=== PATIENT | male | born 1975 | race Caucasian/White ===

== ENCOUNTER 2022-06-22 16:05 | Outpatient (CLI) | payer OTHER, SELFPAY ==
--- NOTE | ~2022-06-22 | XR_ITS ---
Clinical Indication: Cough PA and lateral views of the chest: Comparison: 09/10/2014 Findings: The lungs are clear, without evidence of focal consolidation or pleural effusion. Cardiome diastinal silhouette is within normal limits. Bones and soft tissues are unremarkable. Impression: Normal chest. Reviewed, dictated and finalized at [facility]. [facility] Impression: Normal chest.
== END 2022-06-22 16:06 | disposition home or self-care (01) ==
LOC: ANHIMG 16:12
PROVIDERS: PCP Physician Assistant; Visit Provider Physician Assistant
DX: R05.9 Cough, unspecified (principal)
CPT/HCPCS: 71046

== ENCOUNTER 2024-01-01 14:47 | Outpatient (CLI) | payer OTHER, SELFPAY ==
--- NOTE | ~2024-01-01 | XR_ITS ---
XR femur RT min 2V Ordering provider: Yee Chang, LUCI History: . Pain in right lower leg . Comparison: None. FINDINGS: BONES: No acute fracture or dislocation. JOINT SPACES: Normal. SOFT TISSUES: Normal. IMPRESSION: No acute osseous abnormality of the right femur. Reviewed, dictated and finalized at location A.
--- NOTE | ~2024-01-01 | XR_ITS ---
3 VIEWS LUMBAR SPINE Ordering provider: Yee Chang, PAVishnu History: . Radiculopathy, lumbar region . Comparison: None. FINDINGS: VERTEBRAL BODIES:Lumbarization of S1. No visible fracture or subluxation. DISK SPACES: Slight narrowing of the disc L3-L4. SOFT TISSUES: Normal. Bilateral sacroiliacs. IMPRESSION: No acute osseous abnormality lumbar spine. Reviewed, dictated and finalized at location A.
== END 2024-01-01 14:48 ==
PROVIDERS: PCP Physician Assistant; Visit Provider Physician Assistant
DX: M54.16 Radiculopathy, lumbar region (principal); M79.661 Pain in right lower leg
CPT/HCPCS: 72100; 73552

== ENCOUNTER 2024-09-22 09:13 | Emergency (ER) | payer OTHER, SELFPAY ==
[2024-09-22 09:20] VITALS: BP 151/94; PULSE 90; RESP 16; TEMP 36.4; O2SAT 90
[2024-09-22 09:30] VITALS: RESP 16; O2SAT 99
[2024-09-22] MEDS: DEXTROSE 50% 25 GM/50 ML SYRINGE (09:32)
--- NOTE | 2024-09-22 09:34 | PC.NURSE ---
verbal order by ED[facility] special needs child caregiver for D50% IV push
--- NOTE | 2024-09-22 09:46 | PC.NURSE ---
Pt is eating breakfast.
[2024-09-22 09:58] LABS: Glucose Point of Care 44 mg/dl (65-105)
[2024-09-22 09:58] LABS: Glucose Point of Care 67 mg/dl (65-105)
--- OUTSIDE RECORDS SUMMARY | 2024-09-22 10:13 | XMS_ITS | Data Portability ---
Author Organization KASHMIR ASHISHDaniela Anglin Address [address] [place] [address] Care Team Providers Care Vice President Process Name Role Phone ROS GARCIA Primary Care Provider Unavailab le Assessment No assessment recorded. Plan of Treatment Reminders Order Date Submit Date Provider Last Modified By Organization Details Last Modified Time Details Appointments ANY 15 2024 03:15P M MIRANDA Lino Not available Not available Not available Lab HbA1c (hemoglob in A1c), blood 2024 025 [email or web address] [facility], [address], [place], [address], 07/30/2024 16:57:12 CMP, serum or plasma 2024 025 [email or web address] [facility], [address], [place], [address], 07/30/2024 16:57:12 CBC w/ auto diff 2024 025 [email or web address] [facility], [address], [address], [place], [address], 07/30/2024 16:57:12 lipid panel, serum 2024 025 [email or web address] [facility], [address], [address], [place], [address], 07/30/2024 16:57:12 TSH + free T4, serum 2024 025 [email or web address] [facility], [address], [place], [address], 07/30/2024 16:57:12 PSA, total, serum or plasma 2023 024 [email or web address], [address], [place], [address], 06/10/2024 11:47:50 HbA1c (hemoglob in A1c), blood 2023 024 [email or web address], [address], [address], [place], [address], 06/10/2024 11:47:50 CMP, serum or plasma 2023 024 [email or web address], [address], [address], [place], [address], 06/10/2024 11:47:50 CBC w/ auto diff 2023 024 [email or web address], [address], [place], [address], 06/10/2024 11:47:50 lipid panel, serum 2023 024 [email or web address], [address], [address], [place], [address], 06/10/2024 11:47:50 TSH + free T4, serum 2023 024 [email or web address], [address], [address], [place], [address], 06/10/2024 11:47:50 HbA1c (hemoglob in A1c), blood 2023 024 [email or web address] [facility], [address], [address], [place], [address], 11/05/2023 07:36:26 CMP, serum or plasma 2023 024 [email or web address] [facility], [address], [place], [address], 11/05/2023 07:36:26 CBC w/ auto diff 2023 024 [facility], [address], [address], [place], [address], 11/05/2023 07:36:27 lipid panel, serum 2023 024 [facility], [address], [address], [place], [address], 11/05/2023 07:36:25 TSH + free T4, serum 2023 024 [facility], [address], [address], [place], [address], 11/05/2023 07:36:25 Referral None recorded. Procedures None recorded. Surgeries None recorded. Imaging MRI, lumbar spine, w/o contrast 2024 025 [facility], [address] Joey [address]put, [address], [place], [address], 08/15/2024 12:47:37 XR, lumbar spine 2023 024 [facility], [address], [address], [place], [address], 01/10/2024 15:41:06 XR, femur, 2 or more view [address] [facility], [address], [address], [place], [address], 01/02/2024 07:33:30 Medication Orders carvedilo l 6.25 mg tablet 2023 024 [id number], [address] [place], [address], 10/09/2023 17:33:52 Mounjaro 5 mg/0.5 mL subcutane ous pen injector 2023 024 [id number], [address] [place], [address], 07/30/2024 16:32:43 Patient TargetsNo targets recorded. Patient Instructions Encounter Date Encounter Id Patient Instructions Last Modified By Organization Details Last Modified Time 10/09/2023 [id number] A healthy lifestyle: care instructions [email or web address] Not available 10/29/2023 00:27:55 Reason for Referral None Reported. Results Created Date Observation Date Name Description Value Unit Range Abnormal Flag Note LastModifiedBy Organization Detail LastModifiedTime 11/04/1911/05/2023 TSH+F REE T4 TSH 3.790 uIU/m L 0.450- 4.500 Not Available [facility] ([facility]) [address] [place], [address], 11/05/2023 07:36:25 11/04/1911/05/2023 TSH+F REE T4 T4,free(dire ct) 1.63 NG/dL 0.82-1 .77 Not Available [facility] ([facility]) [address] [place], [address], 11/05/2023 07:36:25 11/04/1911/05/2023 LIPID PANEL cholesterol, total 160 mg/dL 100-19 9 Not Available [facility] ([facility]) [address] [place], [address], 11/05/2023 07:36:25 11/04/1911/05/2023 LIPID PANEL triglyceride s 115 mg/dL 0-149 Not Available [facility]) [address] [place], [address], 11/05/2023 07:36:25 11/04/19 24 11/05/2023 LIPID PANEL HDL cholesterol 44 mg/dL >39 Not Available [facility]) [address] [facility], [place], [address], 11/05/2023 07:36:25 11/04/19 24 11/05/2023 LIPID PANEL VLDL cholesterol cierra 21 mg/dL 5-40 Not Available [facility]) [address] [facility], [place], [address], 11/05/2023 07:36:25 11/04/19 24 11/05/2023 LIPID PANEL LDL chol calc ([facility]) 95 mg/dL 0-99 Not Available [facility] [address] [facility], [place], [address], 11/05/2023 07:36:25 11/04/19 24 11/05/2023 COMP. METAB OLIC PANEL (14) glucose 82 mg/dL 70-99 Not Available [facility] ([facility]) [address] [place], [address], 11/05/2023 07:36:26 11/04/19 24 11/05/2023 COMP. METAB OLIC PANEL (14) BUN 15 mg/dL 6-24 Not Available [facility] ([facility]) [address] [facility], [place], [address], 11/05/2023 07:36:26 11/04/19 24 11/05/2023 COMP. METAB OLIC PANEL (14) creatinine 0.96 mg/dL 0.76-1 .27 Not Available [facility] ([facility]) [address] [place], [address], 11/05/2023 07:36:26 11/04/19 24 11/05/2023 COMP. METAB OLIC PANEL (14) eGFR 96 mL/mi n/1.7 3 >59 Not Available [facility] ([facility]) [address] [place], [address], 11/05/2023 07:36:26 11/04/19 24 11/05/2023 COMP. METAB OLIC PANEL (14) BUN/creatini ne ratio 16 9-20 Not Available [facility]) [address] [facility] [place], [address], 11/05/2023 07:36:26 11/04/19 24 11/05/2023 COMP. METAB OLIC PANEL (14) sodium 142 mmol/ L 134-14 4 Not Available [facility] ([facility]) [address] [facility] [place], [address], 11/05/2023 07:36:26 11/04/19 24 11/05/2023 COMP. METAB OLIC PANEL (14) potassium 4.3 mmol/ L 3.5-5. 2 Not Available [facility] ([facility]) [address] [facility] [place], [address], 11/05/2023 07:36:26 11/04/19 24 11/05/2023 COMP. METAB OLIC PANEL (14) chloride 105 mmol/ L 96-106 Not Available [facility] ([facility]) [address] [facility] [place], [address], 11/05/2023 07:36:26 11/04/19 24 11/05/2023 COMP. METAB OLIC PANEL (14) carbon dioxide, total 21 mmol/ L 20-29 Not Available [facility] ([facility]) [address] [facility] [place], [address], 11/05/2023 07:36:26 11/04/19 24 11/05/2023 COMP. METAB OLIC PANEL (14) calcium 9.6 mg/dL 8.7-10 .2 Not Available [facility] ([facility]) [address] [facility] [place], [address], 11/05/2023 07:36:26 11/04/19 24 11/05/2023 COMP. METAB OLIC PANEL (14) protein, total 6.9 g/dL 6.0-8. 5 Not Available [facility] ([facility]) [address] [facility], [place], [address], 11/05/2023 07:36:26 11/04/19 24 11/05/2023 COMP. METAB OLIC PANEL (14) albumin 4.6 g/dL 4.1-5. 1 Not Available [facility] ([facility]) [address] [place], [place], [address], 11/05/2023 07:36:26 11/04/19 24 11/05/2023 COMP. METAB OLIC PANEL (14) globulin, total 2.3 g/dL 1.5-4. 5 Not Available [facility] ([facility]) [address], [place], [address], 11/05/2023 07:36:26 11/04/19 24 11/05/2023 COMP. METAB OLIC PANEL (14) A/G ratio 2.0 1.2-2. 2 Not Available [facility] ([facility]) [address] [facility], [place], [address], 11/05/2023 07:36:26 11/04/19 24 11/05/2023 COMP. METAB OLIC PANEL (14) bilirubin, total 0.5 mg/dL 0.0-1. 2 Not Available [facility] ([facility]) [address] [facility], [place], [address], 11/05/2023 07:36:26 11/04/19 24 11/05/2023 COMP. METAB OLIC PANEL (14) alkaline phosphatase 89 IU/L 44-121 Not Available [facility] [address] [facility], [place], [address], 11/05/2023 07:36:26 11/04/19 24 11/05/2023 COMP. METAB OLIC PANEL (14) AST (SGOT) 18 IU/L 0-40 Not Available [facility] ([facility]) [address] [facility], [place], [address], 11/05/2023 07:36:26 11/04/19 24 11/05/2023 COMP. METAB OLIC PANEL (14) ALT (SGPT) 18 IU/L 0-44 Not Available [facility] ([facility]) [address] [facility], [place], [address], 11/05/2023 07:36:26 11/04/19 24 11/05/2023 HEMOG LOBIN A1C hemoglobin A1C 7.0 % 4.8-5. 6 above high normal Predi abete s: 5.7 - 6.4 Diabe anat: >6.4 Glyce evaristo contr ol for adult s with diabe anat: <7.0 Not Available [facility] ([facility]) [address] [facility], [place], [address], 11/05/2023 07:36:26 11/04/19 24 11/05/2023 CBC WITH DIFFE RENTI AL/PL ATELE T WBC 6.3 x10e3 /uL 3.4-10 .8 Not Available [facility] ([facility]) [address] [facility], [place], [address], 11/05/2023 07:36:27 11/04/19 24 11/05/2023 CBC WITH DIFFE RENTI AL/PL ATELE T RBC 5.88 x10e6 /uL 4.14-5 .80 above high normal Not Available [facility] ([facility]) [address] [place], [address], 11/05/2023 07:36:27 11/04/19 24 11/05/2023 CBC WITH DIFFE RENTI AL/PL ATELE T hemoglobin 17.4 g/dL 13.0-1 7.7 Not Available [facility] ([facility]) [address] [place], [address], 11/05/2023 07:36:27 11/04/19 24 11/05/2023 CBC WITH DIFFE RENTI AL/PL ATELE T hematocrit 51.5 % 37.5-5 1.0 above high normal Not Available [facility] ([facility]) [address] [facility], [place], [address], 11/05/2023 07:36:27 11/04/19 24 11/05/2023 CBC WITH DIFFE RENTI AL/PL ATELE T MCV 88 fL 79-97 Not Available [facility] ([facility]) [address] [facility], [place], [address], 11/05/2023 07:36:27 11/04/19 24 11/05/2023 CBC WITH DIFFE RENTI AL/PL ATELE T MCH 29.6 pg 26.6-3 3.0 Not Available [facility] ([facility]) [address] [facility], [place], [address], 11/05/2023 07:36:27 11/04/19 24 11/05/2023 CBC WITH DIFFE RENTI AL/PL ATELE T MCHC 33.8 g/dL 31.5-3 5.7 Not Available [facility] ([facility]) [address] [facility], [place], [address], 11/05/2023 07:36:27 11/04/19 24 11/05/2023 CBC WITH DIFFE RENTI AL/PL ATELE T RDW 13.1 % 11.6-1 5.4 Not Available [facility] ([facility]) [address] [place], [address], 11/05/2023 07:36:27 11/04/19 24 11/05/2023 CBC WITH DIFFE RENTI AL/PL ATELE T platelets 263 x10e3 /uL 150-45 0 Not Available [facility] ([facility]) [address] [facility], [place], [address], 11/05/2023 07:36:27 11/04/19 24 11/05/2023 CBC WITH DIFFE RENTI AL/PL ATELE T neutrophils 58 % notest ab. Not Available [facility] ([facility]) [address] [facility], [place], [address], 11/05/2023 07:36:27 11/04/19 24 11/05/2023 CBC WITH DIFFE RENTI AL/PL ATELE T lymphs 30 % notest ab. Not Available [facility] ([facility]) [address] [facility], [place], [address], 11/05/2023 07:36:27 11/04/19 24 11/05/2023 CBC WITH DIFFE RENTI AL/PL ATELE T monocytes 9 % notest ab. Not Available [facility] ([facility]) [address] [facility], [place], [address], 11/05/2023 07:36:27 11/04/19 24 11/05/2023 CBC WITH DIFFE RENTI AL/PL ATELE T eos 3 % notest ab. Not Available [facility] ([facility]) [address] [place], [address], 11/05/2023 07:36:27 11/04/19 24 11/05/2023 CBC WITH DIFFE RENTI AL/PL ATELE T basos 0 % notest ab. Not Available [facility] ([facility]) [address] [facility], [place], [address], 11/05/2023 07:36:27 11/04/19 24 11/05/2023 CBC WITH DIFFE RENTI AL/PL ATELE T neutrophils (absolute) 3.7 x10e3 /uL 1.4-7. 0 Not Available [facility] ([facility]) [address] [facility], [place], [address], 11/05/2023 07:36:27 11/04/19 24 11/05/2023 CBC WITH DIFFE RENTI AL/PL ATELE T lymphs (absolute) 1.9 x10e3 /uL 0.7-3. 1 Not Available [facility] ([facility]) [address] [facility], [place], [address], 11/05/2023 07:36:27 11/04/19 24 11/05/2023 CBC WITH DIFFE RENTI AL/PL ATELE T monocytes(ab solute) 0.6 x10e3 /uL 0.1-0. 9 Not Available [facility] ([facility]) [address] [facility], [place], [address], 11/05/2023 07:36:27 11/04/19 24 11/05/2023 CBC WITH DIFFE RENTI AL/PL ATELE T eos (absolute) 0.2 x10e3 /uL 0.0-0. 4 Not Available [facility] ([facility]) [address] [facility], [place], [address], 11/05/2023 07:36:27 11/04/19 24 11/05/2023 CBC WITH DIFFE RENTI AL/PL ATELE T baso (absolute) 0.0 x10e3 /uL 0.0-0. 2 Not Available [facility] ([facility]) [address] [facility], [place], [address], 11/05/2023 07:36:27 11/04/19 24 11/05/2023 CBC WITH DIFFE RENTI AL/PL ATELE T immature granulocytes 0 % notest ab. Not Available [facility] ([facility]) [address] [facility], [place], [address], 11/05/2023 07:36:27 11/04/19 24 11/05/2023 CBC WITH DIFFE RENTI AL/PL ATELE T immature grans (abs) 0.0 x10e3 /uL 0.0-0. 1 Not Available [facility] ([facility]) [address] [facility], [place], [address], 11/05/2023 07:36:27 05/04/20 24 05/05/2024 TSH+F REE T4 TSH 2.970 uIU/m L 0.450- 4.500 Not Available [facility] ([facility]) [address] [place], [address], 05/05/2024 10:10:12 05/04/20 24 05/05/2024 TSH+F REE T4 T4,free(dire ct) 1.81 NG/dL 0.82-1 .77 above high normal Not Available [facility] ([facility]) [address] [place], [address], 05/05/2024 10:10:12 05/04/20 24 05/05/2024 LIPID PANEL WITH LDL/H DL RATIO cholesterol, total 90 mg/dL 100-19 9 below low normal Not Available [facility] ([facility]) [address] [place], [address], 05/05/2024 10:10:13 05/04/20 24 05/05/2024 LIPID PANEL WITH LDL/H DL RATIO triglyceride s 66 mg/dL 0-149 Not Available [facility] ([facility]) [address] [place], [address], 05/05/2024 10:10:13 05/04/20 24 05/05/2024 LIPID PANEL WITH LDL/H DL RATIO HDL cholesterol 31 mg/dL >39 below low normal Not Available [facility] ([facility]) [address] [place], [address], 05/05/2024 10:10:13 05/04/20 24 05/05/2024 LIPID PANEL WITH LDL/H DL RATIO VLDL cholesterol cierra 15 mg/dL 5-40 Not Available [facility] ([facility]) [address] [place], [address], 05/05/2024 10:10:13 05/04/20 24 05/05/2024 LIPID PANEL WITH LDL/H DL RATIO LDL chol calc ([facility]) 44 mg/dL 0-99 Not Available [facility] [address] [facility], [place], [address], 05/05/2024 10:10:13 05/04/20 24 05/05/2024 LIPID PANEL WITH LDL/H DL RATIO LDL/HDL ratio 1.4 ratio 0.0-3. 6 LDL/H DL Ratio Men Women 1/2 Avg.R isk 1.0 1.5 Avg.R isk 3.6 3.2 2X Avg.R isk 6.2 5.0 3X Avg.R isk 8.0 6.1 Not Available [facility] ([facility]) [address] [facility], [place], [address], 05/05/2024 10:10:13 05/04/20 24 05/05/2024 COMP. METAB OLIC PANEL (14) glucose 93 mg/dL 70-99 Not Available [facility] ([facility]) [address] [place], [address], 05/05/2024 10:10:14 05/04/20 24 05/05/2024 COMP. METAB OLIC PANEL (14) BUN 24 mg/dL 6-24 Not Available [facility] ([facility]) [address] [place], [address], 05/05/2024 10:10:14 05/04/20 24 05/05/2024 COMP. METAB OLIC PANEL (14) creatinine 0.90 mg/dL 0.76-1 .27 Not Available [facility] ([facility]) [address] [place], [address], 05/05/2024 10:10:14 05/04/20 24 05/05/2024 COMP. METAB OLIC PANEL (14) eGFR 104 mL/mi n/1.7 3 >59 Not Available [facility] ([facility]) [address] [place], [address], 05/05/2024 10:10:14 05/04/20 24 05/05/2024 COMP. METAB OLIC PANEL (14) BUN/creatini ne ratio 27 9-20 above high normal Not Available [facility] ([facility]) [address] [place], [address], 05/05/2024 10:10:14 05/04/20 24 05/05/2024 COMP. METAB OLIC PANEL (14) sodium 140 mmol/ L 134-14 4 Not Available [facility] ([facility]) [address] [place], [address], 05/05/2024 10:10:14 05/04/20 24 05/05/2024 COMP. METAB OLIC PANEL (14) potassium 4.2 mmol/ L 3.5-5. 2 Not Available [facility] ([facility]) [address] [place], [address], 05/05/2024 10:10:14 05/04/20 24 05/05/2024 COMP. METAB OLIC PANEL (14) chloride 104 mmol/ L 96-106 Not Available [facility] ([facility]) [address] [place], [address], 05/05/2024 10:10:14 05/04/20 24 05/05/2024 COMP. METAB OLIC PANEL (14) carbon dioxide, total 20 mmol/ L 20-29 Not Available [facility] ([facility]) [address] [place], [address], 05/05/2024 10:10:14 05/04/20 24 05/05/2024 COMP. METAB OLIC PANEL (14) calcium 10.0 mg/dL 8.7-10 .2 Not Available [facility] ([facility]) [address] [place], [address], 05/05/2024 10:10:14 05/04/20 24 05/05/2024 COMP. METAB OLIC PANEL (14) protein, total 6.7 g/dL 6.0-8. 5 Not Available [facility] [address] [facility] [place], [address], 05/05/2024 10:10:14 05/04/20 24 05/05/2024 COMP. METAB OLIC PANEL (14) albumin 4.4 g/dL 4.1-5. 1 Not Available [facility] ([facility]) [address] [place], [place], [address], 05/05/2024 10:10:14 05/04/20 24 05/05/2024 COMP. METAB OLIC PANEL (14) globulin, total 2.3 g/dL 1.5-4. 5 Not Available [facility] ([facility]) [address] [place], [place], [address], 05/05/2024 10:10:14 05/04/20 24 05/05/2024 COMP. METAB OLIC PANEL (14) bilirubin, total 0.7 mg/dL 0.0-1. 2 Not Available [facility] [address] [facility] [place], [address], 05/05/2024 10:10:14 05/04/20 24 05/05/2024 COMP. METAB OLIC PANEL (14) alkaline phosphatase 104 IU/L 44-121 Not Available [facility]) [address] [facility], [place], [address], 05/05/2024 10:10:14 05/04/20 24 05/05/2024 COMP. METAB OLIC PANEL (14) AST (SGOT) 14 IU/L 0-40 Not Available [facility] ([facility]) [address] [facility], [place], [address], 05/05/2024 10:10:14 05/04/20 24 05/05/2024 COMP. METAB OLIC PANEL (14) ALT (SGPT) 16 IU/L 0-44 Not Available [facility] ([facility]) [address] [facility], [place], [address], 05/05/2024 10:10:14 05/04/20 24 05/05/2024 HEMOG LOBIN A1C hemoglobin A1C 7.2 % 4.8-5. 6 above high normal Predi abete s: 5.7 - 6.4 Diabe anat: >6.4 Glyce evaristo contr ol for adult s with diabe anat: <7.0 Not Available [facility] ([facility]) [address] [facility], [place], [address], 05/05/2024 10:10:15 05/04/20 24 05/05/2024 CBC WITH DIFFE RENTI AL/PL ATELE T WBC 5.6 x10e3 /uL 3.4-10 .8 Not Available [facility] ([facility]) [address] [facility], [place], [address], 05/05/2024 10:10:17 05/04/20 24 05/05/2024 CBC WITH DIFFE RENTI AL/PL ATELE T RBC 5.79 x10e6 /uL 4.14-5 .80 Not Available [facility] ([facility]) [address] [facility], [place], [address], 05/05/2024 10:10:17 05/04/20 24 05/05/2024 CBC WITH DIFFE RENTI AL/PL ATELE T hemoglobin 17.6 g/dL 13.0-1 7.7 Not Available [facility] ([facility]) [address] [facility], [place], [address], 05/05/2024 10:10:17 05/04/20 24 05/05/2024 CBC WITH DIFFE RENTI AL/PL ATELE T hematocrit 52.4 % 37.5-5 1.0 above high normal Not Available [facility] ([facility]) [address] [facility], [place], [address], 05/05/2024 10:10:17 05/04/20 24 05/05/2024 CBC WITH DIFFE RENTI AL/PL ATELE T MCV 91 fL 79-97 Not Available [facility] ([facility]) [address] [facility], [place], [address], 05/05/2024 10:10:17 05/04/20 24 05/05/2024 CBC WITH DIFFE RENTI AL/PL ATELE T MCH 30.4 pg 26.6-3 3.0 Not Available [facility] ([facility]) [address] [facility], [place], [address], 05/05/2024 10:10:17 05/04/20 24 05/05/2024 CBC WITH DIFFE RENTI AL/PL ATELE T MCHC 33.6 g/dL 31.5-3 5.7 Not Available [facility] ([facility]) [address] [facility], [place], [address], 05/05/2024 10:10:17 05/04/20 24 05/05/2024 CBC WITH DIFFE RENTI AL/PL ATELE T RDW 12.7 % 11.6-1 5.4 Not Available [facility] ([facility]) [address] [facility], [place], [address], 05/05/2024 10:10:17 05/04/20 24 05/05/2024 CBC WITH DIFFE RENTI AL/PL ATELE T platelets 260 x10e3 /uL 150-45 0 Not Available [facility] ([facility]) [address] [facility], [place], [address], 05/05/2024 10:10:17 05/04/20 24 05/05/2024 CBC WITH DIFFE RENTI AL/PL ATELE T neutrophils 59 % notest ab. Not Available [facility] ([facility]) [address] [facility], [place], [address], 05/05/2024 10:10:17 05/04/20 24 05/05/2024 CBC WITH DIFFE RENTI AL/PL ATELE T lymphs 26 % notest ab. Not Available [facility] ([facility]) [address] [facility], [place], [address], 05/05/2024 10:10:17 05/04/20 24 05/05/2024 CBC WITH DIFFE RENTI AL/PL ATELE T monocytes 12 % notest ab. Not Available [facility] ([facility]) [address] [facility], [place], [address], 05/05/2024 10:10:17 05/04/20 24 05/05/2024 CBC WITH DIFFE RENTI AL/PL ATELE T eos 3 % notest ab. Not Available [facility] ([facility]) [address] [facility], [place], [address], 05/05/2024 10:10:17 05/04/20 24 05/05/2024 CBC WITH DIFFE RENTI AL/PL ATELE T basos 0 % notest ab. Not Available [facility] ([facility]) [address] [facility], [place], [address], 05/05/2024 10:10:17 05/04/20 24 05/05/2024 CBC WITH DIFFE RENTI AL/PL ATELE T neutrophils (absolute) 3.3 x10e3 /uL 1.4-7. 0 Not Available [facility] ([facility]) [address] [facility], [place], [address], 05/05/2024 10:10:17 05/04/20 24 05/05/2024 CBC WITH DIFFE RENTI AL/PL ATELE T lymphs (absolute) 1.4 x10e3 /uL 0.7-3. 1 Not Available [facility] ([facility]) [address] [facility], [place], [address], 05/05/2024 10:10:17 05/04/20 24 05/05/2024 CBC WITH DIFFE RENTI AL/PL ATELE T monocytes(ab solute) 0.7 x10e3 /uL 0.1-0. 9 Not Available [facility] ([facility]) [address] [facility], [place], [address], 05/05/2024 10:10:17 05/04/20 24 05/05/2024 CBC WITH DIFFE RENTI AL/PL ATELE T eos (absolute) 0.2 x10e3 /uL 0.0-0. 4 Not Available [facility] ([facility]) [address] [place], [address], 05/05/2024 10:10:17 05/04/20 24 05/05/2024 CBC WITH DIFFE RENTI AL/PL ATELE T baso (absolute) 0.0 x10e3 /uL 0.0-0. 2 Not Available [facility] ([facility]) [address] [place], [address], 05/05/2024 10:10:17 05/04/20 24 05/05/2024 CBC WITH DIFFE RENTI AL/PL ATELE T immature granulocytes 0 % notest ab. Not Available [facility] ([facility]) [address] [place], [address], 05/05/2024 10:10:17 05/04/20 24 05/05/2024 CBC WITH DIFFE RENTI AL/PL ATELE T immature grans (abs) 0.0 x10e3 /uL 0.0-0. 1 Not Available [facility] ([facility]) [address] [place], [address], 05/05/2024 10:10:17 05/04/20 24 05/05/2024 PROST ATE-S PECIF IC AG prostate specific Ag 0.3 NG/mL 0.0-4. 0 Adarsh ECLIA metho dolog y. Accor ding to the Ameri can [employer]rolo g[employer] iatio n, Serum PSA shoul d decre ase and remai n at undet ectab le level s after radic al prost atect emilia. The AUA defin es bioch emica l recur rence as an initi al PSA value 0.2 ng/mL or great er follo wed by a subse quent confi rmato ry PSA value 0.2 ng/mL or great er. Value s obtai babs with diffe rent assay metho ds or kits canno t be used inter quispe eably . Resul ts canno t be inter prete d as absol tom evide nce of the prese nce or absen ce of nikia thomas se. Not Available [facility] ([facility]) [address] [facility], [place], [address], 05/05/2024 10:10:18 01/02/20 24 01/01/2024 XR, femur , 2 or more view No observ ation record ed. [facility] [address], [place], [address], 01/10/2024 15:42:32 Result Notes None recorded. Problems Name Problem SNOMED Code Status Onset Date Resolution Date Notes Provider Name and Address Organization Details Recorded Time Long-term drug therapy Active 2023 MIRANDA Lino Attn: Gregory gonsalez,[address] [place], [address], [facility] 4 00:27:21 Erectile dysfunction 607677438 Active 2023 MIRANDA Lino Attn: Gregory gonsalez,[address] [place], [address], [facility] 4 00:27:21 Hyperlipide lorraine 46549678 Active 2023 MIRANDA Lino Attn: Gregory gonsalez,[address] [place], [address], [facility] 4 00:27:23 Hypothyroid ism 02636001 Active 2023 MIRANDA Lino Attn: Gregory gonsalez,[address] [place], [address], [place] - [facility] 4 00:27:25 Coronary atheroscler osis 780571818 Active 2023 MIRANDA Lino Attn: Syedasusanne gonsalez,[address] [facility], [place], [address], [place] [facility] 4 00:27:28 Uncontrolle d type 2 diabetes mellitus 343082279 Active 2023 MIRANDA Lino Attn: Gregory wallace,[address] [facility], [place], [address], [place] [facility] 4 00:27:29 Body mass index 30+ - obesity 208643762 Active 2023 MIRANDA Lino Attn: Gregory wallace,[address] [facility], [place], [address], [place] [facility] 4 00:28:02 Obesity 226095408 Active 2023 MIRANDA Lino Attn: Gregory wallace,[address] [facility], [place], [address], [place] [facility] 4 00:28:03 Lumbar radiculopat hy 762917067 Active 2023 MIRANDA Lino Attn: Gregory wallace,[address] [facility], [place], [address], [place] [facility] 4 14:31:40 Pain of right lower leg 8859865499509 08 Active 2023 MIRANDA Lino Attn: Gregory gonsalez,[address] [facility], [place], [address], [place] [facility] 4 14:31:48 Problem Notes None recorded. Procedures Surgical History Date Name Laterality Status Provider Name and Address Organization Details Recorded Time placement of stent in cardiac conduit completed Radha Gan [place] - [facility] 10/09/2023 17:16:08 Imaging Results Imaging Date Name Status [facility]Modified by [facility] Details LastModified Time 01/01/2024 XR, femur, 2 or more view completed [facility] [address], [place], [address], 01/10/2024 15:42:32 Procedure Notes None recorded. Medical Equipment None Reported. Allergies No known drug allergies Medications Name Sig Start Date Stop Date Status Note LastModified by Organization Details LastModified Time atorvastati n 80 mg tablet TAKE 1 TABLET BY MOUTH EVERY DAY, DISCONTIN UE PRAVASTAT IN active Not Available Not Available No t Available carvedilol 6.25 mg tablet TAKE 1 TABLET BY MOUTH TWICE A DAY active Not Available Not Available No t Available penicillin V potassium 500 mg tablet TAKE 1 TABLET BY MOUTH FOUR TIMES A DAY UNTIL FINISHED active Not Available Not Available No t Available bupropion HCl SR 100 mg tablet,12 hr sustained-r elease TAKE 1 TABLET BY MOUTH FOR 1 WEEK THEN TAKE 1 TABLET IN THE MORNING AND AFTERNOON FOR 1 WEEK active Not Available Not Available No t Available amoxicillin 500 mg tablet TAKE 1 TABLET BY MOUTH THREE TIMES A DAY UNTIL FINISHED 02/12 completed Not Available Not Available Not Available pravastatin 80 mg tablet TAKE 1 TABLET BY MOUTH EVERY DAY 11/13 completed Not Available Not Available Not Available ondansetron 4 mg disintegrat ing tablet PLACE 1 TABLET EVERY 6 HOURS BY TRANSLING UAL ROUTE NEEDED, FOR NAUSEA. active Not Available Not Available No t Available lisinopril 2.5 mg tablet TAKE 1 TABLET BY MOUTH EVERY DAY active Not Available Not Available No t Available levothyroxi ne 112 mcg tablet TAKE 1 TABLET BY MOUTH EVERY DAY active Not Available Not Available No t Available amoxicillin 875 mg-potassiu m clavulanate 125 mg tablet TAKE 1 TABLET BY MOUTH TWICE A DAY 11/04 completed Not Available Not Available Not Available tadalafil 20 mg tablet TAKE 1 TAB BY MOUTH DAILY NEEDED DIRECTED. MAX 20MG IN 24 HOURS. active Not Available Not Available No t Available BD Ultra-Fine Short Pen Needle 31 gauge x 16 USE TO INJECT INSULIN TWICE DAILY DIRECTED active Not Available Not Available No t Available OneTouch Verio test strips USE 1 STRIP TWICE A DAY active Not Available Not Available No t Available Basil Richey U-300 Insulin 300 unit/mL (1.5 mL) subcutaneou s pen INJECT 40 UNITS TWICE A DAY BY SUBCUTANE OUS ROUTE DIRECTED. active Not Available Not Available No t Available Synjardy 12.5 mg-1,000 mg tablet TAKE 1 TABLET BY MOUTH TWICE A DAY active Not Available Not Available No t Available OneTouch Verio Flex Meter USE DIRECTED. active Not Available Not Available No t Available OneTouch Delica Plus Lancet 33 gauge USE DIRECTED TWICE A DAY active Not Available Not Available No t Available Mounjaro 7.5 mg/0.5 mL subcutaneou s pen injector INJECT 7.5 MG EVERY WEEK BY SUBCUTANE OUS ROUTE DIRECTED. 2024 active Not Available Not Available Not Avai lable Mounjaro 5 mg/0.5 mL subcutaneou s pen injector Inject 5 mg every week by subcutane ous route. 2023 active Not Available Not Available Not Avai lable Mounjaro 2.5 mg/0.5 mL subcutaneou s pen injector active Not Available Not Available Not Available Vitals Date Recorded Body weight Body mass index (BMI) Body height Heart rate Oxygen saturation Oxygen saturation in Arterial blood by Pulse oximetry Systolic blood pressure Diastolic blood pressure Provider Name and Address Organization Details Last Updated DateTime 4 98032.1 4 g 38.6 kg/m2 160.02 cm 105 /min 95 % 95 % 130 mm[Hg] 78 mm[Hg] Radha Gan MA [facility] 4 17:17:49 Date Recorded Systolic blood pressure Diastolic blood pressure Provider Name and Address Organization Details Last Updated DateTime 10/09/2023 128 mm[Hg] 82 mm[Hg] MIRANDA Lino Attn: Accounting,[address] [place], [address], [place] - [facility] 10/09/2023 17:33:29 Date Recorded Body height Provider Name an d Address Organization Details Last Updated DateTime 12/27/2023 160.02 cm Lori Avalos [facility] 12/27/19 24 16:33:36 Date Recorded Body mass index (BMI) Body weight Respiratory rate Oxygen saturation Oxygen saturation in Arterial blood by Pulse oximetry Heart rate Systolic blood pressure Diastolic blood pressure Provider Name and Address Organization Details Last Updated DateTime 4 38 kg/m2 97985.2 g 20 /min 96 % 96 % 89 /min 122 mm[Hg] 78 mm[Hg] Suri Pereira MA [facility] 4 17:01:05 Date Recorded Body height Body mass index (BMI) Body weight Respiratory rate Heart rate Systolic blood pressure Diastolic blood pressure Provider Name and Address Organization Details Last Updated DateTime 4 160.02 cm 37.4 kg/m2 42385.7 1 g 20 /min 96 /min 128 mm[Hg] 70 mm[Hg] Suri Pereira MA [facility] 4 15:56:51 Date Recorded Systolic blood pressure Diastolic blood pressure Provider Name and Address Organization Details Last Updated DateTime 02/13/2024 118 mm[Hg] 80 mm[Hg] MIRANDA Lino Attn: Accounting, [place], [address], [facility] 02/13/2024 16:10:40 Date Recorded Body height Body mass index (BMI) Body weight Oxygen saturation Oxygen saturation in Arterial blood by Pulse oximetry Heart rate Systolic blood pressure Diastolic blood pressure Provider Name and Address Organization Details Last Updated DateTime 5 160.02 cm 35.1 kg/m2 02919.2 9 g 95 % 95 % 99 /min 126 mm[Hg] 82 mm[Hg] Suri Pereira MA [facility] 5 16:35:51 Date Recorded Respiratory rate Systolic blood pressure Diastolic blood pressure Provider Name and Address Organization Details Last Updated DateTime 07/30/2024 18 /min 110 mm[Hg] 80 mm[Hg] MIRANDA Lino Attn: Accounting, [address] [place], [address], [facility] 07/30/2024 16:58:05 Social History Question Answer Notes LastModified by Organizat ion Details LastModified Time Tobacco Smoking Status Current Some Day Smoker Radha Gan MA [facility], [facility] 10/09/2023 17:15:47 What Is Your Level Of Alcohol Consumption? Moderate Information not available 10/09/2023 Are You Blind Or Do You Have Difficulty Seeing? No Information n ot available 12/27/2023 What Is Your Level Of Caffeine Consumption? Moderate Information not available 10/09/2023 In The 14 Days Before Symptom Onset, Have You Had Close Contact With A Laboratory-confirm ed COVID-19 While That Case Was Ill? No [email or web address] Information n ot available 12/27/2023 In The 14 Days Before Symptom Onset, Have You Had Close Contact With A Person Who Is Under Investigation For COVID-19 While That Person Was Ill? No [email or web address] Information not available 12/27/2023 Have You Been To An Area Known To Be High Risk For COVID-19? No [email or web address] Information not available 12/27/2023 Are You Deaf Or Do You Have Serious Difficulty Hearing? No Information not available 12/27/2023 What Type Of Diet Are You Following? REGULAR Information n ot available 12/27/2023 What Was The Date Of Your Most Recent Tobacco Screening? 07/30/2024 Information not available 07/30/2024 What Is Your Relationship Status? [email or web address] Information not available 12/27/2023 Do You Use Your Seat Belt Or Car Seat Routinely? Yes Information not available 12/27/2023 Do You Have Smoke And Carbon Monoxide Detectors In Your Home? Yes [email or web address] Information not available 12/27/2023 How Much Tobacco Do You Smoke? 1 PPW Information not available 07/30/2024 Do You Use Any Illicit Or Recreational Drugs? No Information not available 10/09/2023 Do You Use Sunscreen Routinely? Yes Information not available 12/27/2023 Has Tobacco Cessation Counseling Been Provided? No Information not available 10/09/2023 Do You Or Have You Ever Used Any Other Forms Of Tobacco Or Nicotine? No Information not available 10/09/2023 Sex: Male Functional Status Question Answer Note LastModified by Organization D etails LastModified Time Are you able to care for yourself? Yes [email or web address] Information n ot available 12/27/2023 What is your exercise level? None [email or web address] Information not available 12/27/2023 Mental Status None recorded. Family History Nothing Reported. Medical History Condition Response Coronary Artery Disease N Other N High Blood Pressure N Atrial Fibrillation N Kidney or Bladder Problems N Thyroid Problems N GI Problems N Depression N COPD N Blood Clots N Skin Problems N Anemia N Heart Attack ([place]) Y Anxiety Disorder N Diabetes Y Muscle, Joint, or Bone Problems N Seizures/Epilepsy N Acid Reflux (GERD) N Cancer N Stroke N Asthma N Allergies N High Cholesterol N Hepatitis N Liver Disease N Headaches N Osteoporosis N Heart Failure N Immunizations Vaccine Type Date Status Note Provider Nam e and Address Organization Details Recorded Time COVID-19, mRNA, LNP-S, PF, 30 mcg/0.3 mL dose 08/30/2020 completed Lori Aval[place], [place] [facility] 12/27/2023 12:47:52 COVID-19, mRNA, LNP-S, PF, 30 mcg/0.3 mL dose 09/20/2020 completed [place] [facility] 12/27/2023 12:47:52 Hep A, adult 09/06/2006 completed L[place] [facility] 12/27/2023 12:47:52 Hep A, adult 09/16/2005 completed [place] [facility] 12/27/2023 12:47:52 Influenza, split virus, quadrivalent, PF 09/12/2014 completed [place] [facility] 12/27/2023 12:47:52 Past Encounters Encounter ID Performer Location Encounter Start Date Encounter Closed Date Diagnosis/Indication Diagnosis SNOMED-CT Code Diagnosis ICD10 Code Diagnosis Note [id number] MIRANDA Lino [facility] [place] [address] [place] [address] 10/09/2023 17:08:57 10/09/2023 17:35:54 Uncontrolled type 2 diabetes mellitus 798253229 E11.65 Increase to mounjaro 5mg weekly dosing. Tolerated 2.5mg well. due for updated a1c lab Hypothyroidism 45275174 E03.9 stable on levothyrox ine 112mcg daily. due for fasting TFT panel. Hyperlipidemia 17691006 E78.5 stable on pravastati n 80mg daily. due for fasting lipid panel Coronary atherosclerosis 535233581 I25.10 refill for coreg 6.25mg bid. stable. asymptomat ic. Erectile dysfunction 860 040758 F52.21 stable. PRN tadalafil 20mg use is helpful. Long-term drug therapy 270275285 Z79.899 routine cmp and cbc due. Body mass index 30+ - obesity 111125504 Z68.38 discussed healthy diet, exercise, controllin g carbohydra anat and added sugars in the diet Obesity 705765256 E66.9 discussed healthy diet, exercise, controllin g carbohydra anat and added sugars in the diet [id number] MIRANDA Lino [facility] [employer] [address] [place] [address] 12/27/2023 16:12:25 12/28/2023 16:16:47 Lumbar radiculopathy 602889233 M54.16 Check baseline x-ray of lumbar spine as presentati on of right thigh pain is likely stemming from lumbar disc issues. Pain of ri ght lower leg 9131107113 77304 M79.661 Check x-ray of right femur just to evaluate bone anatomy and to rule out any bone lesion Uncontroll ed type 2 diabetes mellitus 003739390 E11.65 Patient is currently taking Mounjaro therapy weekly, continues Synjardy oral medication and Toujeo insulin [id number] MIRANDA Lino [facility] [employer] [address] [place] [address] 02/13/2024 15:47:42 02/13/2024 16:27:28 Uncontrolled type 2 diabetes mellitus 564366122 E11.65 Increase to mounjaro 5mg weekly dosing. Tolerated 2.5mg well. due for updated a1c lab Coronary atherosclerosis 322846028 I25.10 refill for coreg 6.25mg bid. stable. asymptomat ic. He has stress testing this week with Dr. Muller for Cardiology at [facility] . Hypothyroidism 79548390 E03.9 stable on levothyrox ine 112mcg daily. due for fasting TFT panel next lab draw Hyperlipidemia 29570152 E78.5 stable on pravastati n 80mg daily. due for fasting lipid panel in March Erectile dysfunction 860 900838 F52.21 stable. PRN tadalafil 20mg use is helpful. Long-term drug therapy 957573799 Z79.899 routine cmp and cbc due in March Body mass index 30+ - obesity 802066417 Z68.38 discussed healthy diet, exercise, controllin g carbohydra anat and added sugars in the diet Obesity 087736317 E66.9 discussed healthy diet, exercise, controllin g carbohydra anat and added sugars in the diet Screening for malignant neoplasm of prostate 356453125 Z12.5 Next PSA is due middle of March order given today [id number] Margaret Verudzco LPN [facility] [employer] [address] [place] [address] 07/30/2024 15:51:52 08/05/2024 11:32:46 Uncontrolled type 2 diabetes mellitus 828446183 E11.65 A1c is improving at 7.2%. Mounjaro therapy is working well, patient is on 7.5 mg weekly Coronary atherosclerosis 121279532 I25.10 refill for coreg 6.25mg bid. stable. asymptomat ic. stress testing was all clear with dr. mulelr. Hypothyroidism 39909382 E03.9 stable on levothyrox ine 112mcg daily. due for fasting TFT panel next lab draw in October Hyperlipidemia 23945996 E78.5 stable on pravastati n 80mg daily. Fasting lipids due in October Erectile dysfunction 860 984305 F52.21 stable. PRN tadalafil 20mg use is helpful. Long-term drug therapy 422278985 Z79.899 routine cmp and cbc due in March Body mass index 30+ - obesity 687824492 Z68.38 discussed healthy diet, exercise, controllin g carbohydra anat and added sugars in the diet Obesity 499007456 E66.9 discussed healthy diet, exercise, controllin g carbohydra anat and added sugars in the diet Lumbar radiculopathy 128 083453 M54.16 10-15 times per week acute pain flare up with radiation to right thigh, patient has already had the lumbar spine x-ray and needs an MRI of the lumbar spine without contrast to evaluate for disc pathology Health Concerns Section Related Observation LastModified by Organization Detai ls LastModified Time None Recorded Concern Status LastModified by Organization Details LastModified Time None Recorded Advance Directives Directive None Recorded Payers Encounter Date Sequence Insurance Name Policy Number Policy Huang Covered Member ID Huang Member ID Guarantor Name 10/09/2023 1 [facility] [id number] Barber Mcmillan [id number] Barber Mcmillan 12/27/2023 1 [facility] [id number] Barber Mcmillan [id number] Barber Mcmillan 02/13/2024 1 [facility] [id number] Barber Mcmillan [id number] Barber Mcmillan 07/30/2024 1 [facility] [id number] Barber Mcmillan [id number] Barber Mcmillan Notes Date Note Type Note Provider Name and Address Organization Details Recorded Time 4 text/html Coronary Artery Disease F/UReported bypatient.Severity:no change since last visit Context:smoker;using Viagra, Levitra, or Cialis Associated Symptoms:no chest pain; no neck pain; no left arm pain; no dyspnea with exertion; no sweating; no nausea; no stressDiabetesReported bypatient.Duration:chronic Control:improved since last visit;usually poorly controlled Compliance:compliant with medications; compliant with follow-up visits;noncompliant with diet Self Care:checking feet regularly Associated Symptoms:weight gain ( lbs)HyperlipidemiaReported bypatient.Type of hyperlipidemia:combined Duration:chronic Control:at goal Compliance:noncompliant;non compliant with diet;does not exercise Complications:coronary artery disease;cardiovascular disease Risk Factors:diabetes;hypertensi on;obesityHypertensionRepor rashid bypatient.Duration:has noted for years Onset/Timing:better Alleviating Factors:medication Associated Symptoms:no shortness of breath; no fatigue; no palpitations; no decline in exercise capacityThyroidReported bypatient.Quality:improving Duration:constant Onset/Timing:better Context:history of hypothyroidism Modifying Factors:medication Exerciseno exercise MIRANDA Lino Attn: Accounting,[address] [place], [address], [facility] 10/29/2023 00:28:17 4 text/html DiabetesReported bypatient.Duration:chronic Control:usually well controlled Compliance:compliant with medications; compliant with follow-up visits; compliant with home glucose monitoring;noncompliant with diet Self Care:monitoring glucose weekly; seeing eye doctor regularly; checking feet regularly; taking aspirin daily Associated Symptoms:no weight gain; no weight loss; no dizziness; no sweats; no headaches; no confusion; no increased thirst; no increased appetite; no increased urination; no blurred vision; no numbness of feet; no calluses on feetNotes:Did a bilateral diabetic foot exam-Both feet were neg.Generic HPI TemplateReported bypatient.Location:R upper leg, thigh anterior Quality:ache Severity:pain rated 7/10 and staying about the same. Duration:comes and goes Onset/Timin months Context:no injury he is aware of. Aggravating factors:walking or standing Alleviating factors:rest Associated Symptoms:no other sx with it. MIRANDA Lino Attn: Accounting,[address] [place], [address], [facility] 01/07/2024 14:33:54 4 text/html Coronary Artery Disease F/UReported bypatient.Severity:no change since last visit Context:smoker;using Viagra, Levitra, or Cialis Associated Symptoms:no chest pain; no neck pain; no left arm pain; no dyspnea with exertion; no sweating; no nausea; no stressDiabetesReported bypatient.Duration:chronic Control:improved since last visit;usually poorly controlled Compliance:compliant with medications; compliant with follow-up visits;noncompliant with diet Self Care:checking feet regularly Associated Symptoms:weight gain ( lbs)HyperlipidemiaReported bypatient.Type of hyperlipidemia:combined Duration:chronic Control:at goal Compliance:noncompliant;non compliant with diet;does not exercise Complications:coronary artery disease;cardiovascular disease Risk Factors:diabetes;hypertensi on;obesityHypertensionRepor rashid bypatient.Duration:has noted for years Onset/Timing:better Alleviating Factors:medication Associated Symptoms:no shortness of breath; no fatigue; no palpitations; no decline in exercise capacityThyroidReported bypatient.Quality:improving Duration:constant Onset/Timing:better Context:history of hypothyroidism Modifying Factors:medication Exerciseno exercise MIRANDA Lino Attn: Accounting,[address] [facility], [place], [address], [facility] 03/02/2024 18:03:18 text/html Back PainReported bypatient.Location:pain radiating to the buttocks;pain radiating to the legs Quality:sharp;tingling Severity:worsening;severe (8-10);interference with work Duration:chronic Onset/Timing:recurrent episode Context:trauma; overuse; prior back problems Alleviating Factors:rest Aggravating Factors:movement/positionin g;twisting;flexing back;extending back Associated Symptoms:no fever; no weak limbs; no incontinence; no shortness of breath;numbness of the legs/feet;tinglingCoronary Artery Disease F/UReported bypatient.Severity:no change since last visit Context:smoker;using Viagra, Levitra, or Cialis Associated Symptoms:no chest pain; no neck pain; no left arm pain; no dyspnea with exertion; no sweating; no nausea; no stressDiabetesReported bypatient.Duration:chronic Control:improved since last visit;usually poorly controlled Compliance:compliant with medications; compliant with follow-up visits;noncompliant with diet Self Care:checking feet regularly Associated Symptoms:weight gain ( lbs)HyperlipidemiaReported bypatient.Type of hyperlipidemia:combined Duration:chronic Control:at goal Compliance:noncompliant;non compliant with diet;does not exercise Complications:coronary artery disease;cardiovascular disease Risk Factors:diabetes;hypertensi on;obesityHypertensionRepor rashid bypatient.Duration:has noted for years Onset/Timing:better Alleviating Factors:medication Associated Symptoms:no shortness of breath; no fatigue; no palpitations; no decline in exercise capacityThyroidReported bypatient.Quality:improving Duration:constant Onset/Timing:better Context:history of hypothyroidism Modifying Factors:medication Exerciseno exercise MIRANDA Lino Attn: Accounting,[address] [facility], [place], [address], [place] - [facility] 08/05/2024 10:00:42
--- OUTSIDE RECORDS SUMMARY | 2024-09-22 10:13 | XMS_ITS | CONTINUITY OF CARE DOCUMENT ---
Author Name siddhartha carl Address Unknown Organization [place] [facility] Address [address] [place] [address] Phone [phone] Care Team Providers Care Framing Mechanic Name Role Phone Antonio Abbott MD Unavailable Antonio Abbott MD Unavailable ROS BAKER Unavailable [phone] INSURANCE PROVIDERS Payer name Policy type / Coverage type [place] [employer] ID [employer] [id number]
--- OUTSIDE RECORDS SUMMARY | 2024-09-22 10:13 | XMS_ITS | Data Portability ---
Author Organization [facility], Main Office Address [address] [place] [address] Assessment No assessment recorded. Plan of Treatment Reminders Order Date Submit Date Provider Last Modified By Organization Details Last Modified Time Details Appointments None recorded. Lab lipid panel, serum 2022 023 [facility], [address], [address], [place], [address], 4 09:54:21 PSA, serum or plasma 2022 023 [facility], [address], [place], [address], 4 09:54:22 HbA1c (hemoglobin A1c), blood 2022 023 [facility], [address], [address], [place], [address], 4 09:54:21 microalbumi n/creatinin e, mass ratio, urine 2022 023 [facility], [address], [address], [place], [address], 4 09:54:21 CMP, serum or plasma 2022 023 [facility], [address], [place], [address], 4 09:54:22 TSH + free T4, serum 2022 023 [facility], [address], [address], [place], [address], 4 09:54:21 Referral cardiologis t referral 2022 023 [email or web address] Sukumar Guerrero MD, [address], [address], [place], [address], 4 09:54:11 Procedures None recorded. Surgeries None recorded. Imaging None recorded. Medication Orders Mounjaro 2.5 mg/0.5 mL subcutaneou s pen injector 2022 023 [id number], [address] [place], [address], 3 16:50:17 OneTouch Verio test strips 2022 023 [id number], [address] [place], [address], 3 11:21:57 Patient TargetsNo targets recorded. Patient InstructionsNo instructions recorded. Reason for Referral [employer] Referral for Co ronary atherosclerosis patient is overdue for routine f/u. may need stress testing follow up as well. Referring Physician: Yee Chang, Internal Medicine, Encounter Date: 03/21/2023 Results Created Date Observation Date Name Description Value Unit Range Abnormal Flag Note LastModifiedBy Organization Detail LastModifiedTime 10/15/19 22 10/14/2021 AMBIG ABBRE V BMP8 DEFAU LT ambig abbrev BMP8 default commen t A hand- writt en panel /prof ile was recei talita from your offic e. In accor dance with the [facility] Ambig uous Test Code Polic y dated December 2002, we have compl eted your order by using the close st curre ntly or forme rly recog nized AMA panel . We have assig babs Basic Metab olic Panel (8), Test Code #[address]. If this is not the testi ng you wishe d to recei ve on this speci men, pleas e conta ct the [facility] Clien t Inqui ry/Te chnic al Servi katharina Depar tment to julianne fy the test order . We appre ciate your busin ess. Not Available [facility] ([facility]) [address] [facility], [place], [address], 11/05/2021 11:38:46 10/15/19 22 11/05/2021 TESTO STERO NE, TOTAL , LC/MS testosterone , total, lc/MS 351.8 NG/dL 264.0- 916.0 This [facility] LC/MS -MS metho d is curre ntly certi fied by the [facility] Hormo ne Stand ardiz ation Progr am (HoSt ). Adult male refer ence inter jordin is based on a popul ation of healt hy nonob jaswant males (BMI <30) betwe en 19 and 39 years old. Andrew patel et.al . JCEM 2017, 102;1 161-1 173. PMID: 69750 103. This test was devel oped and its perfo rmanc e maki cteri stics deter mined by [facility]. It has not been clear ed or appro talita by the Food and Drug Admin istra tion. Not Available [facility] ([facility]) [address] [facility], [place], [address], 11/05/2021 11:38:46 10/15/19 22 10/15/2021 HEMOG LOBIN A1C hemoglobin A1C 7.9 % 4.8-5. 6 above high normal Predi abete s: 5.7 - 6.4 Diabe anat: >6.4 Glyce evaristo contr ol for adult s with diabe anat: <7.0 Not Available [facility] ([facility]) [address] [facility], [place], [address], 11/05/2021 11:38:45 10/15/19 22 10/15/2021 LIPID PANEL WITH LDL/H DL RATIO cholesterol, total 151 mg/dL 100-19 9 Not Available [facility] ([facility]) [address] [facility], [place], [address], 11/05/2021 11:38:45 10/15/19 22 10/15/2021 LIPID PANEL WITH LDL/H DL RATIO triglyceride s 76 mg/dL 0-149 Not Available [facility] ([facility]) [address] [facility], [place], [address], 11/05/2021 11:38:45 10/15/19 22 10/15/2021 LIPID PANEL WITH LDL/H DL RATIO HDL cholesterol 45 mg/dL >39 Not Available [facility] ([facility]) [address] [facility], [place], [address], 11/05/2021 11:38:45 10/15/19 22 10/15/2021 LIPID PANEL WITH LDL/H DL RATIO VLDL cholesterol cierra 15 mg/dL 5-40 Not Available [facility] ([facility]) [address] [facility], [place], [address], 11/05/2021 11:38:45 10/15/19 22 10/15/2021 LIPID PANEL WITH LDL/H DL RATIO LDL chol calc ([facility]) 91 mg/dL 0-99 Not Available [facility] ([facility]) [address] [facility], [place], [address], 11/05/2021 11:38:45 10/15/19 22 10/15/2021 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 6 LDL/H DL Ratio Men Women 1/2 Avg.R isk 1.0 1.5 Avg.R isk 3.6 3.2 2X Avg.R isk 6.2 5.0 3X Avg.R isk 8.0 6.1 Not Available [facility] ([facility]) [address] [facility] [place], [address], 11/05/2021 11:38:45 10/15/19 22 10/15/2021 BASIC METAB OLIC PANEL (8) glucose 104 mg/dL 65-99 above high normal Not Available [facility] ([facility]) [address] [facility] [place], [address], 11/05/2021 11:38:44 10/15/19 22 10/15/2021 BASIC METAB OLIC PANEL (8) BUN 15 mg/dL 6-24 Not Available [facility] ([facility]) [address] [facility] [place], [address], 11/05/2021 11:38:44 10/15/19 22 10/15/2021 BASIC METAB OLIC PANEL (8) creatinine 0.87 mg/dL 0.76-1 .27 Not Available [facility] ([facility]) [address] [facility] [place], [address], 11/05/2021 11:38:44 10/15/19 22 10/15/2021 BASIC METAB OLIC PANEL (8) eGFR 106 mL/mi n/1.7 3 >59 Not Available [facility] ([facility]) [address] [facility] [place], [address], 11/05/2021 11:38:44 10/15/19 22 10/15/2021 BASIC METAB OLIC PANEL (8) BUN/creatini ne ratio 17 9-20 Not Available [facility] ([facility]) [address] [facility] [place], [address], 11/05/2021 11:38:44 10/15/19 22 10/15/2021 BASIC METAB OLIC PANEL (8) sodium 144 mmol/ L 134-14 4 Not Available [facility] ([facility]) [address] [facility] [place], [address], 11/05/2021 11:38:44 10/15/19 22 10/15/2021 BASIC METAB OLIC PANEL (8) potassium 4.1 mmol/ L 3.5-5. 2 Not Available [facility] ([facility]) [address] [place], [address], 11/05/2021 11:38:44 10/15/19 22 10/15/2021 BASIC METAB OLIC PANEL (8) chloride 104 mmol/ L 96-106 Not Available [facility] ([facility]) [address] [place], [address], 11/05/2021 11:38:44 10/15/19 22 10/15/2021 BASIC METAB OLIC PANEL (8) carbon dioxide, total 22 mmol/ L 20-29 Not Available [facility] ([facility]) [address] [place], [address], 11/05/2021 11:38:44 10/15/19 22 10/15/2021 BASIC METAB OLIC PANEL (8) calcium 9.4 mg/dL 8.7-10 .2 Not Available [facility] ([facility]) [address] [place], [address], 11/05/2021 11:38:44 10/15/19 22 10/15/2021 TSH+F REE T4 TSH 4.220 uIU/m L 0.450- 4.500 Not Available [facility] ([facility]) [address] [place], [address], 11/05/2021 11:38:44 10/15/19 22 10/15/2021 TSH+F REE T4 T4,free(dire ct) 1.49 NG/dL 0.82-1 .77 Not Available [facility] ([facility]) [address] [place], [address], 11/05/2021 11:38:44 07/22/19 22 07/14/2021 CT, head + orbit s, w/o contr ast No observ ation record ed. [id number] [facility] [address], [place], [address], 08/31/2022 16:58:32 06/23/20 22 06/22/2022 XR, chest , 2 view No observ ation record ed. [id number] [facility] [address], [place], [address], 08/31/2022 16:58:32 Result Notes None recorded. Problems Name Problem SNOMED Code Status Onset Date Resolution Date Notes Provider Name and Address Organization Details Recorded Time Benign essential hypertension 8087079 Active Not Available [facility] 3 16:57:06 Body mass index 30+ - obesity 939951543 Active Not Available [facility] 3 16:57:06 Insomnia 264712083 Active Not Available [facility] 3 16:57:06 Mixed hyperlipidemi a 518943182 Active Not Available [facility] 3 16:57:06 Moderate nonproliferat sandie retinopathy due to diabetes mellitus 376680848 Active 2021 Not Available [facility] 3 16:57:06 Stented artery 373083808 Active Not Available [facility] 3 16:57:06 Hypothyroidis m 40980916 Active Not Available [facility] 3 16:57:06 Coronary atheroscleros is 532228475 Active 2021 Not Available [facility] 3 16:57:07 Uncontrolled type 2 diabetes mellitus 509947480 Active Not Available [facility] 3 16:57:07 Shoulder pain 02674457 Active Not Available [facility] 3 16:57:07 Hypogonadism 18156301 Active Not Available [facility] 3 16:57:07 Cough 49845368 Active 2021 Not Available [facility] 3 16:57:07 Coronary arteriosclero sis 84238451 Active Not Available [facility] 3 16:57:07 Hyperlipidemi a 01439728 Active Not Available [facility] 3 16:57:07 Essential hypertension 08097413 Active Not Available [facility] 3 16:57:07 Long-term current use of insulin 403010535 Active 2021 Not Available [facility] 3 16:57:07 Problem Notes None recorded. Procedures Surgical History Date Name Laterality Status Provider Name and Address Organization Details Recorded Time 07/03/19 15 catheterization of left heart completed Not Available [facility] 08/31/2022 16:56:28 Foot Surgery completed Not Available [facility] 08/31/2022 16:56:28 Imaging Results Imaging Date Name Status LastModified by [facility] Details LastModified Time 06/22/2022 XR, chest, 2 view completed [id number] [facility] [address], [place], [address], 08/31/2022 16:58:32 07/14/2021 CT, head + orbits, w/o contrast completed [id number] [facility] [address] [place], [address], 08/31/2022 16:58:32 Procedure Notes None recorded. Medical Equipment None Reported. Allergies No known drug allergies Medications Name Sig Start Date Stop Date Status Note LastModified by Organization Details LastModified Time carvedilol 6.25 mg tablet TAKE 1 TABLET BY MOUTH TWICE A DAY active Not Available Not Available No t Available prednisone 10 mg tablet TAKE 1 TABLET BY MOUTH EVERY DAY FOR FIVE DAYS 06/22 completed Not Available Not Available Not Available trazodone 50 mg tablet TAKE 1-2 TABLETS BY MOUTH AT BEDTIME NEEDED FOR SLEEP (30 MIN. BEFORE BEDTIME) . 07/22 completed Not Available Not Available Not Available sildenafil 50 mg tablet TAKE 1 TABLET BEFORE SEXUAL ACTIVITY , DIRECTED . MAX OF 2 IN 24 HOURS. DO NOT USE IF NITROGLY CERIN HAS BEEN TAKEN active Not Available Not Available No t Available pravastati n 40 mg tablet TAKE 1 TABLET EVERY DAY active Not Available Not Available No t Available penicillin V potassium 500 mg tablet TAKE 1 TABLET BY MOUTH 4 TIMES A DAY UNTIL FINISHED 10/08 completed Not Available Not Available Not Available levothyrox ine 75 mcg tablet TAKE 1 TABLET BY MOUTH EVERY MORNING active Not Available Not Available No t Available meloxicam 7.5 mg tablet TAKE 1 TABLET BY MOUTH EVERY DAY 12/13 completed Not Available Not Available Not Available levothyrox ine 100 mcg tablet TAKE 1 TABLET BY MOUTH EVERY DAY active Not Available Not Available No t Available levothyrox ine 88 mcg tablet TAKE 1 TABLET BY MOUTH EVERY MORNING 08/23 completed Not Available Not Available Not Available pravastati n 80 mg tablet TAKE 1 TABLET BY MOUTH EVERY DAY active Not Available Not Available No t Available Nitrostat 0.4 mg sublingual tablet DISSOLVE 1 TABLET UNDER TONGUE EVERY 5 MINUTES FOR CHEST PAIN *MAX 3 DOSES active Not Available Not Available No t Available benzonatat e 100 mg capsule TAKE 1 CAPSULE BY MOUTH 3 TIMES A DAY NEEDED 06/22 completed Not Available Not Available Not Available levothyrox ine 50 mcg tablet TAKE 1 TABLET EVERY DAY active Not Available Not Available No t Available prednisone 50 mg tablet Take 1 tablet every day by oral route for 5 days. 03/20 completed Not Available Not Available Not Available levofloxac in 500 mg tablet Take 1 tablet every 24 hours by oral route. 03/20 completed Not Available Not Available Not Available lisinopril 2.5 mg tablet TAKE 1 TABLET BY MOUTH EVERY DAY active Not Available Not Available No t Available naproxen 500 mg tablet TAKE 1 TABLET BY MOUTH TWICE A DAY WITH FOOD 12/13 completed Not Available Not Available Not Available Microlet Lancet TEST 4 TIMES A DAY active Not Available Not Available No t Available levothyrox ine 112 mcg tablet TAKE 1 TABLET BY MOUTH EVERY DAY 2023 active Not Available Not Available Not Avai lable Novolog FlexPen U-100 Insulin aspart 100 unit/mL (3 mL) subcutaneo us INJECT 1O UNITS THREE TIMES DAILY BEFORE MEALS 10/20 completed Not Available Not Available Not Available tadalafil 20 mg tablet TAKE 1 TABLET BY MOUTH EVERY DAY NEEDED active Not Available Not Available No t Available Low Dose Aspirin active Not Available Not Available Not Available BD Ultra-Fine Short Pen Needle 31 gauge x 5/16 USE TO INJECT INSULIN TWICE DAILY DIRECTED active Not Available Not Available No t Available hydrochlor othiazide 12.5 mg tablet Take 1 tablet every day by oral route in the morning. active Not Available Not Available No t Available Humalog KwikPen (U-100) Insulin 100 unit/mL subcutaneo us Inject 10 units 3 times a day by subcutan eous route with meals. 2020 active pt isn't taking this much. Not Available Not Available Not Available levothyrox ine 50 mcg capsule Take 1 capsule every day by oral route. 2014 active Not Available Not Available Not Avai lable Brilinta 90 mg tablet TAKE 1 TABLET BY MOUTH TWICE A DAY active Not Available Not Available No t Available OneTouch Verio test strips USE 1 STRIP TWICE A DAY active Not Available Not Available No t Available Xigduo XR 5 mg-1,000 mg tablet,ext ended release TAKE 1 TABLET BY MOUTH EVERY DAY 06/28 completed Not Available Not Available Not Available Toujeo SoloStar U-300 Insulin 300 unit/mL (1.5 mL) subcutaneo us pen INJECT 70 UNITS EVERY DAY BY SUBCUTAN EOUS ROUTE. 2023 active Not Available Not Available Not Avai lable Synjardy 12.5 mg-1,000 mg tablet TAKE 1 TABLET BY MOUTH TWICE A DAY active Not Available Not Available No t Available OneTouch Verio Flex Meter USE DIRECTED . 2023 active Not Available Not Available Not Avai lable Invokamet XR 150 mg-1,000 mg tablet, extended release TAKE 1 TABLET BY MOUTH EVERY DAY 07/10 completed Not Available Not Available Not Available Basaglar KwikPen U-100 Insulin 100 unit/mL (3 mL) subcutaneo us INJECT 50 UNITS SUBCUTAN EOUSLY TWICE DAILY 10/22 completed Not Available Not Available Not Available OneTouch Delica Plus Lancet 33 gauge USE DIRECTED TWICE A DAY active Not Available Not Available No t Available Mounjaro 2.5 mg/0.5 mL subcutaneo us pen injector INJECT 2.5 MG EVERY WEEK BY SUBCUTAN EOUS ROUTE DIRECTED . 2023 active Not Available Not Available Not Avai lable Dexcom G7 Investment Strategist active Not Available Not Available Not Available Vitals Date Recorded Body mass index (BMI) Body height Oxygen saturation Oxygen saturation in Arterial blood by Pulse oximetry Heart rate Respiratory rate Body temperature Body weight Systolic blood pressure Diastolic blood pressure Provider Name and Address Organization Details Last Updated DateTime 2 36.1 kg/m2 162.56 cm 98 % 98 % 96 /min 16 /min 97.6 [degF] 28968.5 5 g 140 mm[Hg] 82 mm[Hg] Not Available [facility] 3 16:56:38 Date Recorded Body mass index (BMI) Body height Oxygen saturation Oxygen saturation in Arterial blood by Pulse oximetry Heart rate Respiratory rate Body temperature Body weight Systolic blood pressure Diastolic blood pressure Provider Name and Address Organization Details Last Updated DateTime 2 35.4 kg/m2 162.56 cm 99 % 99 % 66 /min 16 /min 98 [degF] 42091.0 3 g 110 mm[Hg] 68 mm[Hg] Not Available [facility] 3 16:56:38 Date Recorded Body height Oxygen saturation Oxygen saturation in Arterial blood by Pulse oximetry Heart rate Body temperature Body weight Systolic blood pressure Diastolic blood pressure Provider Name and Address Organization Details Last Updated DateTime 2 162.56 cm 97 % 97 % 95 /min 98 [degF] 95826.6 2 g 118 mm[Hg] 64 mm[Hg] Not Available [facility] 3 16:56:39 Date Recorded Body height Body weight Body temperature Heart rate Oxygen saturation Oxygen saturation in Arterial blood by Pulse oximetry Systolic blood pressure Diastolic blood pressure Provider Name and Address Organization Details Last Updated DateTime 3 162.56 cm 86575.2 1 g 98.3 [degF] 101 /min 98 % 98 % 132 mm[Hg] 70 mm[Hg] Chandrika London RN [facility] 3 16:42:06 Date Recorded Body mass index (BMI) Provider Name and Address Organization Details Last Updated DateTime 03/21/2023 35.7 kg/m2 MIRANDA Lino [address] [place] [address], [id number], [facility] 04/01/2023 23:16:57 Date Recorded Body height Body temperature Body mass index (BMI) Body weight Respiratory rate Oxygen saturation Oxygen saturation in Arterial blood by Pulse oximetry Heart rate Systolic blood pressure Diastolic blood pressure Provider Name and Address Organization Details Last Updated DateTime 3 162.56 cm 97.8 [degF] 37.4 kg/m2 52914.1 4 g 16 /min 96 % 96 % 100 /min 122 mm[Hg] 80 mm[Hg] BETTY Mota [facility] 16:23:22 Date Recorded Systolic blood pressure Diastolic blood pressure Provider Name and Address Organization Details Last Updated DateTime 06/13/2023 110 mm[Hg] 80 mm[Hg] MIRANDA Lino [address] [facility], [facility] [address], [place], [address], [place] - [facility] 06/13/2023 16:43:27 Social History Question Answer Notes LastModified by Organizat ion Details LastModified Time Tobacco Smoking Status Former Smoker Not Available [facility] 08/31/2022 16:56:25 What Is Your Level Of Alcohol Consumption? Moderate [id number] Information not available 08/31/2022 What Is Your Level Of Caffeine Consumption? Moderate [id number] Information not available 08/31/2022 How Much Tobacco Do You Chew? None [id number] Information not available 08/31/2022 In The 14 Days Before Symptom Onset, Have You Had Close Contact With A Laboratory-confirm ed COVID-19 While That Case Was Ill? No [id number] Information not available 08/31/2022 In The 14 Days Before Symptom Onset, Have You Had Close Contact With A Person Who Is Under Investigation For COVID-19 While That Person Was Ill? No [id number] Information not available 08/31/2022 Are You Currently Employed? Yes [email or web address] Information not available 03/20/2023 What Type Of Diet Are You Following? REGULAR [id number] Information not available 08/31/2022 Which Illicit Or Recreational Drugs Have You Used? None [id number] Information not available 08/31/2022 What Is Your Occupation? [employer] [id number] Information not available 08/31/2022 Have There Been Any Changes To Your Family Or Social Situation? No [id number] Information not available 08/31/2022 Are There Any Guns Present In Your Home? No [id number] Information not available 08/31/2022 Do You Use Insect Repellent Routinely? No [id number] Information not available 08/31/2022 What Is Your Relationship Status? [id number] Information not available 08/31/2022 Do You Use Your Seat Belt Or Car Seat Routinely? Yes [id number] Information not available 08/31/2022 Do You Have Smoke And Carbon Monoxide Detectors In Your Home? Yes [id number] Information not available 08/31/2022 At What Age Did You Start Smoking Tobacco? 15 [id number] Information not available 08/31/2022 How Much Tobacco Do You Smoke? 0.5 PPD [id number] Information not available 08/31/2022 Do You Use Any Illicit Or Recreational Drugs? No [id number] Information not available 08/31/2022 Do You Use Sunscreen Routinely? Yes [id number] Information not available 08/31/2022 Have You Recently Traveled Abroad? No [id number] [id number] Information not available 08/31/2022 Do You Have Any Dietary Restrictions? No [id number].[id number] Information not available 08/31/2022 Do You Or Have You Ever Used Any Other Forms Of Tobacco Or Nicotine? No [id number].[id number] 2658 Information not available 08/31/2022 Sex: Unknown Functional Status Question Answer Note LastModified by Organizat ion Details LastModified Time What is your exercise level? Moderate [id number] Information not available 08/31/2022 Mental Status None recorded. Family History Nothing Reported Notes:Pt was adopted Medical History Condition Response KIDNEY STONES Y DIABETES, TYPE Y INSOMNIA Y HYPOTHYROIDISM Y SLEEP DISORDER Y DIZZINESS Y HYPERTENSION Y OBESITY Y CORONARY ARTERY DISEASE (CAD) Y Immunizations Vaccine Type Date Status Note Provider Nam e and Address Organization Details Recorded Time influenza, unspecified formulation 5 completed Not Available [facility] 08/31/2022 16:58:28 Influenza, split virus, quadrivalent, PF 9 completed Not Available [facility] 08/31/2022 16:58:28 Influenza, split virus, quadrivalent, preservative 5 completed Not Available [facility] 08/31/2022 16:58:28 Tdap 5 completed Not Available [facility] 08/31/2022 16:58:28 Past Encounters Encounter ID Performer Location Encounter Start Date Encounter Closed Date Diagnosis/Indication Diagnosis SNOMED-CT Code Diagnosis ICD10 Code Diagnosis Note [id number] [facility] [address] [place] [address] 10/09/2020 00:00:00 10/29/2020 23:39:29 [id number] [facility] [address] [place] [address] 03/24/2021 00:00:00 03/28/2021 17:35:48 [id number] [facility] [address] [place] [address] 06/03/2021 00:00:00 06/30/2021 00:16:31 [id number] [facility] [address] [place] [address] 07/23/2021 00:00:00 08/01/2021 22:30:48 [id number] [facility] [address] [place] [address] 11/22/2021 00:00:00 11/29/2021 16:59:25 [id number] [facility] [address] [place] [address] 06/22/2022 00:00:00 06/28/2022 20:27:28 [id number] MIRANDA Lino [facility] [address] [place] [address] 03/21/2023 16:36:24 03/21/2023 17:50:27 Uncontrolled type 2 diabetes mellitus 450718128 E11.65 Rx for Dexcom G6 CGM to help with better accountabi lity for the patient in food choices and insulin dosing and f/u. due for repeat labs in jun. Coronary atherosclerosis 908910625 I25.10 referral to his cardiologi st for re-establi shment and determine what testing is needed for routine screening with his hx of CAD and interventi on Hyperlipidemia 32859856 E78.5 on high dose statin therapy. repeat labs in jun. Hypothyroidism 22482345 E03.9 on thyroid supplement . repeat labs in jun. Benign ess ential hypertension [id number] I10 stable. on lisinopril low dose. Screening for malignant neoplasm of prostate [id number] Z12.5 psa due in jun. [id number] MIRANDA Lino [facility] Arielle Westfall [address] [place] [address] 06/13/2023 15:51:04 06/13/2023 16:59:59 Uncontrolled type 2 diabetes mellitus [id number] E11.65 a1c down to 8.5% from 9.2% on recent labs. Rx addition of mounjaro 2.5mg weekly and refill on one touch kit. Coronary atherosclerosis [id number] I25.10 still to schedule the referral to his cardiologi st for re-establi shment and determine what testing is needed for routine screening with his hx of CAD and interventi on Hyperlipidemia [id number] E78.5 on high dose statin therapy. improved. stable. Hypothyroidism [id number] E03.9 on thyroid supplement . stable on labs Benign ess ential hypertension 7356141 I10 stable. on lisinopril low dose. Long-term drug therapy [id number] Z79.899 Health Concerns Section Related Observation LastModified by Organization Detai ls LastModified Time None Recorded Concern Status LastModified by Organization Details LastModified Time None Recorded Advance Directives Directive None Recorded Payers Encounter Date Sequence Insurance Name Policy Number Policy Huang Covered Member ID Huang Member ID Guarantor Name 03/21/2023 1 [facility] [id number] Barber Mcmillan [id number] Barber Mcmillan 06/13/2023 1 [facility] [id number] Barber Mcmillan [id number] Barber Mcmillan Notes Date Note Type Note Provider Name and Address Organization Details Recorded Time 022 text/ht ml DiabetesReported bypatient.Duration:chronic Control:usually well controlled; improved since last visit; normal range of home blood sugars (in the low 100s) Compliance:compliant with medications; compliant with follow-up visits; compliant with home glucose monitoring;noncompliant with diet Self Care:monitoring glucose 2 times per day Context:seeing eye doctor regularly; checking feet regularly; taking aspirin daily Associated Symptoms:no weight gain; no weight loss; no dizziness; no sweats; no headaches; no confusion; no increased thirst; no increased urination; no blurred vision; no numbness of feet; no calluses on feet; no fatigue; no blurred vision; no paresthesias;increased appetiteGeneric HPI TemplateReported bypatient.Notes:Pt was suppose to have a 2 mo f/u on labs but he did not get them done. In the mean time he did end up in the hospital though. He went in on 07/14/21 for hypoglycemia. He says they monitored him while there and long acting insulin once a day of 10-25ml. Not Available [facility] [employer] 08/01/2021 22:30:48 022 text/ht ml DiabetesReported bypatient.Duration:chronic Control:usually well controlled; improved since last visit; normal range of home blood sugars (in the low 100s) Compliance:compliant with medications; compliant with follow-up visits; compliant with diet; compliant with home glucose monitoring Self Care:monitoring glucose daily Context:seeing eye doctor regularly; checking feet regularly Associated Symptoms:no weight gain; no weight loss; no dizziness; no sweats; no headaches; no confusion; no increased thirst; no increased appetite; no increased urination; no blurred vision; no numbness of feet; no calluses on feet; no fatigue; no blurred vision; no paresthesiasHyperlipidemiaReported bypatient.Duration:chronic Control:usually well controlled; improving; at goal Compliance:compliant; compliant with diet; exercises Complications:no coronary artery disease; no peripheral artery disease; no cardiovascular diseaseHypertensionReported bypatient.Onset/Timing:better Alleviating Factors:medication Self Care:not under emotional stress Associated Symptoms:no shortness of breath; no fatigue; no palpitations; no decline in exercise capacity; no snoringHypothyroidismReported bypatient.Severity:moderate Onset/Timing:better Context/Risk:normal thyroid levels; no history of head or neck radiation during childhood; no history of thyroid disease; no history of hypothyroidism; no history of hyperthyroidism; no excess iron exposure Exercisegets exercise Associated Symptoms:no cold intolerance; no heat intolerance; no weight loss; no weight gain; no double vision; no dry eyes; no hoarseness; no difficulty swallowing; no neck masses; no deepening of the voice; no fast heart rate; no increased blood pressure; no palpitations; no chest pain; no chest tightess or pressure; no constipation; no diarrhea; no vomiting; no decreased appetite; no loose stools; no irregular menstrual periods; no excessive sweating; no joint pain; no numbness; no tingling of the hands or feet; no dry skin; no tremor; no nervousness; no anxiety; no depression; no fatigue; no sleep difficulties; no skin changes; no hair changesInsomniaReported bypatient.Severity:improving Associated Symptoms:no anxiety; no snoring; no depression; no known sleep apnea; no pain; no dyspnea; no urinary frequency; legs do not feel restless Not Available [employer] 11/29/2021 16:59:25 022 text/ht ml Generic HPI TemplateReported bypatient.Notes:pt states still not over upper respiratory illness after three weeks and urgent care visit. Over all not feeling well Not Available [employer] 06/28/2022 20:27:28 023 text/ht ml DiabetesReported bypatient.Duration:chronic Control:usually poorly controlled; treated with insulin Compliance:noncompliant with medications;noncompliant with followup-visits;noncompliant with diet;noncompliant with home glucose monitoring;has not had eye doctor visit in last year;has not had dietitian visit in last year Self Care:not monitoring home glucose Context:missing doses of medication Associated Symptoms:coronary artery diseaseHyperlipidemiaReported bypatient.Notes:taking statin therapyHypertensionReported bypatient.Notes:on medicationHypothyroidismReported bypatient.Notes:on thyroid supplement. follow up on diabetes/blood work to see about dexcom 7 or freestyle ольга glucose monitor MIRANDA Lino [address] [facility], [facility] [address], [place], [address], [employer] 04/01/2023 23:20:16 023 text/ht ml DiabetesReported bypatient.Duration:chronic Control:usually well controlled Compliance:compliant with medications; compliant with follow-up visits; compliant with diet; had eye doctor visit in last year;noncompliant with home glucose monitoring;has not had dietitian visit in last year;does not wear a medic alert bracelet or necklace;does not keep rapid-acting carbohydrate in car Self Care:not monitoring home glucose Context:normal range of home blood sugars (in the low 100s); seeing eye doctor regularly; checking feet regularly; taking aspirin daily Associated Symptoms:no weight gain; no weight loss; no dizziness; no sweats; no headaches; no confusion; no increased thirst; no increased appetite; no increased urination; no blurred vision; no numbness of feet; no calluses on feet; no coronary artery disease; no kidney disease; no peripheral vascular disease; no diabetic retinopathy; no diabetic neuropathyHyperlipidemiaReported bypatient.Duration:chronic Control:usually well controlled Compliance:compliant; exercises;noncompliant with diet Complications:no coronary artery disease; no peripheral artery disease; no cardiovascular disease Risk Factors:diabetes;hypertension;smokin gHypertensionReported bypatient.Duration:has noted for years Onset/Timing:better Alleviating Factors:medication Associated Symptoms:no shortness of breath; no fatigue; no palpitations; no decline in exercise capacity; no snoringHypothyroidismReported bypatient.Quality:not changing Duration:constant Onset/Timing:still present Context/Risk:normal thyroid levels; no history of head or neck radiation during childhood; no history of thyroid disease; no history of hyperthyroidism; no excess iron exposure;history of hypothyroidism;female gender Modifying Factors:medication Exercisegets exercise Associated Symptoms:no cold intolerance; no heat intolerance; no weight loss; no weight gain; no double vision; no dry eyes; no hoarseness; no difficulty swallowing; no neck masses; no deepening of the voice; no fast heart rate; no increased blood pressure; no palpitations; no chest pain; no chest tightess or pressure; no constipation; no diarrhea; no vomiting; no decreased appetite; no loose stools; no irregular menstrual periods; no excessive sweating; no joint pain; no numbness; no tingling of the hands or feet; no dry skin; no tremor; no nervousness; no anxiety; no depression; no fatigue; no sleep difficulties; no skin changes; no hair changes MIRANDA Lino [address], [facility] [address], [place], [address], [facility] 06/29/2023 13:55:20
--- OUTSIDE RECORDS SUMMARY | 2024-09-22 10:13 | XMS_ITS | Clinical Summary ---
Author Organization [facility] Address [address] [place] [address] Care Team Providers Care Esthetician And Manager Medical Spa Name Role Phone Tai Encarnacion MD Primary Care Provider [phone] Allergies No known active allergies Medications carvediloL (COREG) 6.25 mg tablet Take 1 Tablet by mouth 2 times daily. Active empagliflozin- metFORMIN (Synjardy) 12.5-1,000 mg tablet Take 1 Tablet by mouth 2 times daily. Active insulin glargine U-300 conc (Toujeo SoloStar U-300 Insulin) 300 unit/mL pen syringe INJECT 70 UNITS EVERY DAY BY SUBCUTANEOUS ROUTE. 4 Active lisinopriL (PRINIVIL) 2.5 mg tablet Take 1 Tablet by mouth daily. Active sildenafiL (VIAGRA) 50 mg tablet TAKE 1 TABLET BEFORE SEXUAL ACTIVITY, DIRECTED. MAX OF 2 IN 24 HOURS. DO NOT USE IF NITROGLYCERIN HAS BEEN TAKEN Active aspirin (ECOTRIN EC) 81 mg Tablet, Delayed Release (E.C.) Take 81 mg by mouth daily. Active nitroglycerin (Nitrostat) 0.4 mg Tablet, Sublingual DISSOLVE 1 TABLET UNDER TONGUE EVERY 5 MINUTES FOR CHEST PAIN *MAX 3 DOSES Active tirzepatide (Mounjaro) 2.5 mg/0.5 mL Pen Injector Inject 5 mg by subcutaneous injection every 7 days. 4 Active levothyroxine 112 mcg tablet Take 1 Tablet by mouth daily. 4 Active buPROPion HCL (WELLBUTRIN SR) 100 mg Sustained Release 12 hour tablet Take 1 tab daily for 1 week, then increase to 1 tab each AM and each PM for 1 week. 180 Tablet 11 4 Active atorvastatin (LIPITOR) 80 mg tablet Take 1 Tablet (80 mg) by mouth daily. 4 Active Active Problems Patient Care Coordination No te Formatting of this note migh t be different from the original. Alfonso Muller MD- [facility] ( [facility]) Problem Noted Date Diagnosed Date History of ID (myocardial infarction) 07/02/2024 Mixed hyperlipidemia 03/18/2024 Coronary artery disease invo lving huslia coronary artery without angina pectoris 01/22/2024 Overview (07/02/2024): S/P PCI following ID [id number] Small apical inferolat infarct, no ischemia, nl LV fxn stress 03/26 Type 2 diabetes mellitus, wi thout long-term current use of insulin 01/22/2024 Resolved Problems Problem Noted Date Diagnosed Date Resolved Date Atherosclerosis with claudic ation of extremity 03/18/2024 07/02/2024 Tobacco dependence 03/18/2024 Tobacco use 01/22/2024 07/02/2024 Encounters Date Type Department Care Team Description 09/18/2024 External Device Data ST[facility] ABSTRACTION Provider, Abstract 09/07/2024 External Device Data [facility] ABSTRACTION Provider, Abstract 09/06/2024 External Device Data [facility]STRACTION Provider, Abstract 09/03/2024 External Device Data [facility] ABSTRACTION Provider, Abstract 2024 External Device Data [facility] ABSTRACTION Provider, Abstract 08/08/2024 Telephone [facility] At [facility] [address] [facility] [place] [address] Alfonso Muller MD Paperwork 07/24/2024 External Device Data [facility] ABSTRACTION Provider, Abstract 07/23/2024 External Device Data [facility] ABSTRACTION Provider, Abstract 07/16/2024 External Device Data [facility] ABSTRACTION Provider, Abstract 07/02/2024 3:15 PM EMISSIONS TESTING TECHNICIAN Office Visit [facility] - [facility] [address] [facility] [address] [place] [address] Alfonso Muller MD CAD s/p PCI (Primary Dx); Hyperlipidemia; Hypertension; History of ID (myocardial infarction); Tobacco use from Last 3 Months Social History Tobacco Use Types Packs/Day Years Used Date Smoking Tobacco: Former Cigarettes Tobacco Cessation:Counseling Given: Not Answered Alcohol Use Standard Drinks/Week Comments Yes 0 (1 standard drink = 0.6 oz pur e alcohol) Sex and Gender Information Value Date Recorded Sex Assigned at Not on file Legal Sex Male 10:29 AM CDT Gender Identity Not on file Sexual Orientation Not on file Last Filed Vital Signs Vital Sign Reading Time Taken Comments Blood Pressure 100/60 07/02/2024 2:56 PM EMISSIONS TESTING TECHNICIAN Pulse 94 07/02/2024 2:56 PM EMISSIONS TESTING TECHNICIAN Temperature - - Respiratory Rate - - Oxygen Saturation 98% 07/02/2024 2:56 PM EMISSIONS TESTING TECHNICIAN Inhaled Oxygen Concentration - - Weight 93 kg (205 lb) 07/02/2024 2:56 PM EMISSIONS TESTING TECHNICIAN Height 160 cm (5' 3 ) 07/02/2024 2:56 PM EMISSIONS TESTING TECHNICIAN Body Mass Index 36.31 07/02/2024 2:56 PM EMISSIONS TESTING TECHNICIAN Plan of Treatment Upcoming Encounters Date Type Department Care Team (Late st Contact Info) Description 07/08/2025 3:15 PM EMISSIONS TESTING TECHNICIAN Office Visit [facility] - [facility] [address] [place] [address] [address] [place] [address] Alfonso Muller MD [address] [place] [address] Health Maintenance Due Date Last Done Comments DIABETES ANNUAL FOOT EXAM 1991 DIABETES ANNUAL RETINAL EXAM 1991 DIABETES HBA1C Q 6 MONTHS 1991 DIABETES MICROALBUMIN ANNUAL SCREEN 1991 LDL CHOLESTEROL ANNUAL 1991 HEPATITIS B VACCINES (1 of 3 - 19+ 3-dose series) 1992 COLORECTAL SCREENING 2018 Colorectal Cancer Screening 2018 FIT-DNA Q 3 years 2018 FIT/FOBT Q 1 year 2018 Flex Sig/CT Colonography Q 5 years 2018 ZOSTER VACCINE (1 of 2) 2023 INFLUENZA VACCINE (#1) 2024 04/09/2019, 2014 Preventative Visit- Commercial 07/03/2024 DTAP/TDAP/TD VACCINES (2 - Td or Tdap) 05/06/2025 Insurance [facility] [facility] [id number] Member Subscriber Plan / Payer (Ef fective 2023-Present) Name:Barber Mcmillan Relation to Subscriber:Self Name:Barber Mcmillan Payer ID:[id number] (NAIC) Type:PPO Address: [facility] [id number] [place] [id number] Care Teams Esthetician And Manager Medical Spa Relationship Specialty Start Date End Date Tai Encarnacion MD [address] [place] [id number] PCP - General Internal Medicine 03/18/24
--- OUTSIDE RECORDS SUMMARY | 2024-09-22 10:13 | XMS_ITS | Clinical Summary ---
Author Organization [facility] Address [address] [place] [address] Care Team Providers Care Roundsman Name Role Phone Unavailable Primary Care Provider Unavailabl e Social History Tobacco Use Types Packs/Day Years Used Date Smoking Tobacco: Never Assessed Sex and Gender Information Value Date Recorded Sex Assigned at Not on file Legal Sex Male 5:42 PM CDT Gender Identity Not on file Sexual Orientation Not on file Plan of Treatment Health Maintenance Due Date Last Done Comments Colorectal Cancer Screening Colonoscopy (10 Years) 1973 Annual Physical 1976 Hepatitis C 1991 DTaP, Tdap and Td Vaccines ( 1 - Tdap) 1992 Hepatitis B Vaccines (1 of 3 - 19+ 3-dose series) 1992 Zoster Vaccines (1 of 2) 2023 COVID-19 Vaccine (2023-2 5 season) 2024 Influenza Adult (#1) 2024 Meningococcal B Vaccine Aged Out No l onger eligible based on patient's age to complete this topic Meningococcal Vaccine Aged Out No [place] eligible based on patient's age to complete this topic Pneumococcal Vaccine: Pediat rics (0 to 5 Years) and At-Risk Patients (6 to 64 Years) Aged Out No longer eligible b ased on patient's age to complete this topic RSV Immunizations Under 20 Months Aged Out No longer eligible based on patient's age to complete this topic
--- OUTSIDE RECORDS SUMMARY | 2024-09-22 10:13 | XMS_ITS | Encounter Summary ---
Author Organization [facility] Address [address] [place] [address] Care Team Providers Care Principal Java Developer Name Role Phone Tai Encarnacion MD Primary Care Provider [phone] Encounter Details Date Type Department Care Team (Late Contact Info) Description 04/09/2024 Telephone [facility] At [address] [place] [address] Herminio Sanchez MD [address] [place] [address] [address] [place] [address] Social History Tobacco Use Types Packs/Day Years Used Date Smoking Tobacco: Former Cigarettes Alcohol Use Standard Drinks/Week Comments Yes 0 (1 standard drink = 0.6 oz pur e alcohol) Sex and Gender Information Value Date Recorded Sex Assigned at Not on file Legal Sex Male 10:29 AM CDT Gender Identity Not on file Sexual Orientation Not on file documented as of this encounter Plan of Treatment Upcoming Encounters Date Type Department Care Team (Late st Contact Info) Description 07/08/2025 3:15 PM MANAGER MISSION Office Visit [facility] - [facility] [address] [facility] [address] [place] [address] Alfonso Muller MD [address] [place] [address] [address] [place] [address] documented as of this encounter Visit Diagnoses Not on filedocumented in this encounter Care Teams Principal Java Developer Relationship Specialty Start Date End Date Tia Encarnacion MD [address] [place] [address] PCP - General Internal Medicine 03/18/24 documented as of this encounter
--- OUTSIDE RECORDS SUMMARY | 2024-09-22 10:13 | XMS_ITS | Clinical Summary ---
Author Organization [facility] Address [address] [place] [address] Care Team Providers Care Associate Professor Of Archaeology Name Role Phone Tai Encarnacion MD Primary Care Provider Unavailab le Source Comments [facility],non-owned Affiliates and Associated Physician Practices is amultiple site organization consisting of ambulatory clinics and hospital sitesin [place], [place], [place] and [place]. This disclosure is being madepursuant to the Care Everywhere program and may not contain all information available regarding this patient. Last updated 18.[facility] Allergies No known active allergies Medications * Be aware that medications may not be up to date on this document. Alwaysverify current medications with the patient. Medication Sig Dispensed Refills Start Date End Date Status pioglitazone (ACTOS) 15 MG tabletIndications:Lianne betes mellitus type II, uncontrolled Take 1 Tab by mouth daily. needs visit 90 3 01/25/2010 Active metFORMIN (GLUCOPHAGE) 1000 MG tabletIndications:Lianne betes mellitus type II, uncontrolled Take 1 Tab by mouth 2 times daily. Patient needs APPOINTMENT 30 Tab 0 12/02/2010 Active Active Problems Problem Noted Date Diagnosed Date Diabetes mellitus type II, uncontrolled 01/26/20 10 Social History Tobacco Use Types Packs/Day Years Used Date Smoking Tobacco: Every Day Alcohol Use Standard Drinks/Week Comments Yes 0 (1 standard drink = 0.6 oz pur e alcohol) Sex and Gender Information Value Date Recorded Sex Assigned at Not on file Gender Identity Not on file Sexual Orientation Not on file Last Filed Vital Signs Vital Sign Reading Time Taken Comments Blood Pressure 120/70 01/25/2010 10:42 AM CDT Pulse 76 01/25/2010 10:42 AM CDT Temperature - - Respiratory Rate 18 01/25/2010 10:42 AM CDT Oxygen Saturation - - Inhaled Oxygen Concentration - - Weight 100.2 kg (221 lb) 01/25/2010 10:42 AM CDT Height 160 cm (5' 3 ) 01/25/2010 10:42 AM CDT Body Mass Index 39.15 01/25/2010 10:42 AM CDT Plan of Treatment Health Maintenance Due Date Last Done Comments COLOGUARD (AGES 45-75) - COL ON CA SCREENING 1973 COLON MONITORING 1973 COLONOSCOPY - COLON CA SCREENING 1973 CT COLONOGRAPHY - COLON CA SCREENING 1973 Colorectal Cancer Screening 1973 FIT - COLON CA SCREENING 1973 FLEX SIG - COLON CA SCREENING 1973 HIV SCREENING 1988 HEPATITIS C SCREENING 08/17/1991 DTAP/TDAP/TD VACCINES (1 - Tdap) 1992 HEPATITIS B VACCINE (1 of 3 - 19+ 3-dose series) 1992 PNEUMOCOCCAL VACCINE 50+ (1 of 2 - PCV) 1992 LIPID TESTING 01/25/2015 01/25/2010, 09/12/2008, 09/12/2008 ZOSTER VACCINE (1 of 2) 2023 COVID-19 VACCINE (1 - 2023-2 5 season) 2024 INFLUENZA VACCINE (#1) 2024 DEPRESSION SCREENING 07/03/2024 HIB VACCINE Aged Out No longer eligi ble based on patient's age to complete this topic HPV VACCINE Aged Out No longer eligi ble based on patient's age to complete this topic MENINGOCOCCAL (Group B) VACCINE SHARED DECISION-MAKING Aged Out No longer eligible based on patient's age to complete this topic MENINGOCOCCAL GROUPS A/C/Y/W VACCINE Aged Out No longer eligible b ased on patient's age to complete this topic Procedures Procedure Name Priority Date/Time Associated Diagnosis Comments LIPID PROFILE W LDL/HDL RATIO Routine 01/25/2010 11:14 AM CDT Diabetes Mellitus Type II, Uncontrolled from Last 3 Months or Most Recently Relevant to Health Maintenance Results * (ABNORMAL) LIPID PROFILE W LDL/HDL (PO REF LAB) (01/25/2010 11:14 AM CDT) Cholesterol 196 100 - 199 mg/dL [facility] ACCOUNT BILL Triglycerides 176(H) 0 - 149 mg/dL [facility] ACCOUNT BILL HDL Cholesterol 42 >39 mg/dL [facility] ACCOUNT BILL Comment: According to ATP-III Guidelines, HDL-C >59 mg/dL is considered a negative risk factor for CHD. VLDL Calculated 35 5 - 40 mg/dL [facility] ACCOUNT BILL LDL Calculated 119(H) 0 - 99 mg/dL [facility] ACCOUNT BILL LDL/HDL Ratio 2.8 0.0 - 3.6 ratio units [facility] ACCOUNT BILL BLOOD SPECIMEN / Unknown 01/25/2010 11:14 AM CDT 01/25/2010 5:20 PM CDT Narrative Resulting Agency Comment [facility] [address] [id number] Tai Encarnacion MD LAB - CHEMISTRY VI TAFO[facility] Organization Address City/State/ZIP Co de Phone Number [facility] ACCOUNT BILL from Last 3 Months or Most Recently Relevant to Health Maintenance Care Teams Associate Professor Of Archaeology Relationship Specialty Start Date End Date Tai Encarnacion MD PCP - General Internal Medicine 12/02/10
--- NOTE | 2024-09-22 10:30 | ED.GENADULT ---
HPI - General Adult General Chief complaint: Recheck/Abnormal Lab/Rx Stated complaint: Low BG Time Seen by Provider: 09/22/24 10:03 History of Present Illness HPI narrative: 49-year-old male history of diabetes presents emergency department for evaluation for low blood sugar. Patient states he did take his insulin this morning but did not have breakfast. Patient did go to get his oral changes morning and was heading to breakfast when he was found to be driving erratically and was pulled over by the police. Patient was found to have a blood sugar in the 40s. EMS was called and patient was transferred to the emergency department. Upon arrival patient's initial blood sugar was low, patient did eat some food and has increased 67. At time of my evaluation patient is alert orientated and is eager to be discharged home. Patient did eat a tray of food. Related Data Allergies Allergy/AdvReac Type Severity Reaction Status Date / Time Animal Dander Allergy Unknown Uncoded 09/10/14 08:57 Review of Systems Review of Systems: All systems reviewed & are unremarkable except as noted in HPI and below Exam Narrative: APPEARANCE: Well appearing, no pain, no distress, well-nourished. HEAD: normocephalic, atraumatic. EYES: PERRLA/EOMI, conjunctivae clear. NOSE: Normal no drainage EARS:TMS clear with good light reflex. THROAT: Pharynx clear, no exudate. NECK: Supple. No adenopathy, no masses. RESPIRATORY: Airway patent, respirations nonlabored. Clear to auscultation bilaterally, no rales, rhonchi, wheezing. CARDIOVASCULAR: Regular rate and rhythm without murmurs rubs or gallops. ABDOMINAL: Soft, nontender, nondistended, normal bowel sounds MUSCULOSKELETAL: Moves all extremities. Strength/ROM intact, No edema, No calf tenderness. NEURO: Alert. Cranial nerves II through XII intact. Good gait. Good coordination SKIN: Warm, dry. Normal Color Course Vital Signs Vital signs: Vital Signs Temperature 97.6 F 09/22/24 09:20 Pulse Rate 90 09/22/24 09:20 Respiratory Rate 16 09/22/24 09:20 Blood Pressure 151/94 H 09/22/24 09:20 Pulse Oximetry 90 09/22/24 09:20 Oxygen Delivery Room Air 09/22/24 09:20 Temperature 97.6 F 09/22/24 09:20 Pulse Rate 70 09/22/24 10:50 Respiratory Rate 18 09/22/24 10:50 Blood Pressure 123/86 09/22/24 10:50 Pulse Oximetry 100 09/22/24 10:50 Oxygen Delivery Room Air 09/22/24 09:20 Medical Decision Making MDM Narrative Medical decision making narrative: 49-year-old male presents emergency department for evaluation for low blood sugar caused by failure to eat after taking his insulin. Patient has been eating and is alert oriented back to baseline. Patient's repeat blood sugar was 99. Patient does request to be discharged home. Differential Diagnosis Differential Diagnosis: Medication overdose, medication noncompliance, hyperglycemia, infection Vital Signs Vital Signs: Vital Signs Temperature 97.6 F 09/22/24 09:20 Pulse Rate 90 09/22/24 09:20 Respiratory Rate 16 09/22/24 09:20 Blood Pressure 151/94 H 09/22/24 09:20 Pulse Oximetry 90 09/22/24 09:20 Oxygen Delivery Room Air 09/22/24 09:20 Temperature 97.6 F 09/22/24 09:20 Pulse Rate 70 09/22/24 10:50 Respiratory Rate 18 09/22/24 10:50 Blood Pressure 123/86 09/22/24 10:50 Pulse Oximetry 100 09/22/24 10:50 Oxygen Delivery Room Air 09/22/24 09:20 Lab Data Labs: Lab Results 09/22/24 09/22/24 09/22/24 Range/Units 09:19 09:54 10:31 POC Capillary Glucose 44 L* 67 99 (65-105) mg/dl Discharge Plan Discharge Clinical Impression: Hypoglycemia Patient Disposition: Home, Self-Care Condition: Stable Instructions: Antibiotic Form, Hypoglycemia in a Person with Diabetes (DC) Additional Instructions: Be sure to check your blood sugars before taking your insulin and to follow a well-balanced diabetic diet. Have close follow-up with your primary care physician. Patient Language: Upper Sorbian Follow-up/Referrals: Bernardo,LUCI Fraire [Primary Care Provider] -
[2024-09-22 10:33] LABS: Glucose Point of Care 99 mg/dl (65-105)
[2024-09-22 10:50] VITALS: BP 123/86; PULSE 70; RESP 18; O2SAT 100
== END 2024-09-22 10:51 | disposition home or self-care (01) ==
PROVIDERS: Emergency Provider Emergency Medicine; PCP Physician Assistant
DX: E11.649 Type 2 diabetes mellitus with hypoglycemia without coma (principal); Z79.899 Other long term (current) drug therapy
CPT/HCPCS: 82948; 96374; 99284